=== PATIENT | female | born 1955 | race African-American/Black ===

== ENCOUNTER → 2016-08-17 | Outpatient (CLI) | payer OTHER ==
[~2016-08-17] MED LIST: ABILIFY PO; ABILIFY5 MG PO; ACIDOPHILUS1 EAC4 PO; ALDACTAZIDE PO; ALLOPURINOL300 MG PO; ALPRAZOLAM0.5 MG PO; ALPRAZOLAM1 MG PO; AMLODIPINE BESYL5 MG PO; ANTACID650 MG PO; ARAVA10 MG PO; ARTIFICIAL TEAR15 M9 OU; ASPIRIN81 MG PO; ASPIRINEC PO; ATARAX PO; BACITRACIN OP3.5 GM TOP; BACTRIM DS TAB1 EACH PO; BENZONATATE PO; BUMEX1 MG PO; BUTRANS1 EAC1 TD; CALCITRIOL0.5 MCG PO; CYMBALTA PO; CYMBALTA30 M1 PO; CYMBALTA30 MG PO; DELTASONE20 MG PO; DIFLUCAN100 MG PO; DITROPAN XL5 M1 PO; DITROPAN5 MG PO; DOCUSATE SODIU100 MG PO; DULOXETINE HCL60 MG PO; EFFER-K 20 MEQ20 MEQ PO; FERROUS SULFAT325 MG PO; FLEXERIL10 MG PO; HYDROCODON-ACE1 EAC7 PO; IRON325 ( 651 PO; KEPPRA250 MG PO; KEPPRA500 M2 PO; LISINOPRIL-HCTZ1 T14 PO; LISINOPRIL20 MG PO; LYRICA225 MG PO; LYRICA300 MG PO; MARINOL2.5 M1 PO; NEURONTIN100 MG PO; NEXIUM PO; PLAQUENIL200 MG PO; POTASSIUM CHLO10 MEQ PO; PREDNISONE PO; PROAIR HFA8.5 GM; PROTONIX PO; REGLAN10 MG PO; SOD BICARBONATE PO; TOPROL XL PO; VALTREX PO; VITAMIN D1000 UNIT PO; VITAMIN D400 UNI2 PO; XANAX1 MG PO
--- NOTE | ~2016-08-17 | MR148 ---
[facility] A Service of [facility] RADIOLOGY TEXT RESULTS PATIENT: VIC LANIER [facility] UNIT #: [id number] AGE: [address]: Yoshi Wilson MD SEX: F ORDER DR: [id number] [facility] [address] [place], [place] [address] [id number] O MR#: [id number] Acc #: [id number] NAME: VIC LANIER : 1955 SEX: F STUDY DATE/TIME: 08/17/2016 14:26 UNIT: [facility] ROOM: STUDY DESCRIPTION: MR Orbit Face and or Neck WWo Attending Physician: Yoshi Wilson M.D. Ordering Physician: Yoshi Wilson M.D. Primary Care Physician: Ciaran Ospina M.D. MRI CENTER REPORT This report is preliminary unless electronic signature is present. EXAM MRI of the orbits with and without contrast. DATE OF EXAM 08/17/2016 COMPARISON MRI of the brain with and without contrast dated 08/17/2016. HISTORY Left eye external ophthalmoplegia. Patient has not opened up the left eye in 2 months. Balance problems for 6-months. FINDINGS Multisequence, multiplanar imaging of the orbits were obtained with and without contrast. Globes of bilateral eyes, extraocular muscles, retrobulbar fat, lacrimal glands and optic nerves do not demonstrate any significant abnormality. Severe ophthalmic veins, optic chiasm and the prechiasmatic optic nerves are within normal limits. Status post bilateral cataract surgery. Visualized portions of the optic tract is also unremarkable. No abnormal enhancement or mass is seen. Adjacent paranasal sinuses demonstrate no significant abnormality. Left maxillary antrum is asymmetrically smaller when compared to the right. IMPRESSION 1. No orbital mass, abnormal extraocular muscles or optic nerves are seen. 2. Grossly, the globes are intact with evidence of cataract surgery and aphakia. 3. Optic chiasm and the prechiasmatic optic nerves do not demonstrate any significant abnormality. [facility] A Service of [facility] RADIOLOGY TEXT RESULTS PATIENT: VIC LANIER LOCATION: [facility] : 55 UNIT #: [id number] AGE: [address]: Yoshi Wilson MD SEX: F ORDER DR: Dictated by... Nely Rasmussen M.D. THIS IS AN ELECTRONICALLY VERIFIED REPORT Nely Rasmussen M.D. at 08/18/2016 5:25 PM CPR/jt TD: 08/17/2016 17:37 JOB #: [id number] MRI CENTER REPORT Page 1 of 1 COPY
--- NOTE | ~2016-08-17 | MR17 ---
[facility] A Service of [facility] RADIOLOGY TEXT RESULTS PATIENT: VIC LANIER LOCATION: [facility] : 55 UNIT #: [id number] AGE: [address]: Yoshi Wilson MD SEX: F ORDER DR: [id number] [facility] [address] [place], [place] [address] [id number] O MR#: [id number] Acc #: [id number] NAME: VIC LANIER : 1955 SEX: F STUDY DATE/TIME: 08/17/2016 13:27 UNIT: [facility] ROOM: STUDY DESCRIPTION: MR Brain WWo Contrast Attending Physician: Yoshi Wilson M.D. Ordering Physician: Yoshi Wilson M.D. Primary Care Physician: Ciaran Ospina M.D. MRI CENTER REPORT This report is preliminary unless electronic signature is present. EXAM MRI of the brain with and without contrast dated 08/17/2016. COMPARISON MRI brain without contrast dated 05/05/2013, 09/24/2015, and MRI orbits dated 08/17/2016. HISTORY External ophthalmoplegia of the left eye. Patient has not opened the left eye now for 2 months. Eyelid twitches on and off. Balance problems for 6 months. FINDINGS Multisequence, multiplanar imaging of the brain was obtained with and without contrast. GFR measured 58. 16 mL of MultiHance was administered intravenously. Scattered increased T2-signal lesions are noted in the white matter, particularly the left frontal centrum semiovale and left cerebellar hemisphere which are stable when compared to the previous study. There is a small 3 mm increased T2-signal lesions noted in the posterior mid-right cerebellar hemisphere which was not seen on the previous study from 3 years ago. No acute stroke, enhancing mass, hydrocephalus, or midline shift. Bilateral occipital lobes are within normal limits. Status post bilateral cataract surgery. Paranasal sinuses and mastoid air cells demonstrate mild bilateral mastoid mucosal thickening. Thick slices through the sella with the pituitary gland, pineal region, and upper cervical spine are within normal limits. IMPRESSION 1. There are a few increased T2-signal lesions in the brain which are nonspecific. Based on age and statistics it could be related to mild chronic microvascular ischemic change and old lacunar infarcts, particularly in the left cerebellar hemisphere. A small similar lesion is noted in the right cerebellar hemisphere measuring 3 mm. [facility] A Service of [facility] RADIOLOGY TEXT RESULTS PATIENT: VIC LANIER LOCATION: [facility] : 55 UNIT #: [id number] AGE: [address]: Yoshi Wilson MD SEX: F ORDER DR: It is relatively new when compared to the prior study from 3 years ago. 2. The occipital lobes, region of the optic chiasm, and optic tract do not demonstrate any significant abnormality. 3. Visualized orbits do not demonstrate any significant abnormality on these thicker slices. Refer to MRI orbits. Dictated by... Nely Rasmussen M.D. THIS IS AN ELECTRONICALLY VERIFIED REPORT Nely Rasmussen M.D. at 08/18/2016 5:25 PM CPR/tmw TD: 08/17/2016 17:17 JOB #: [id number] MRI CENTER REPORT Page 1 of 1 COPY
[2016-08-17 13:21] LABS: POC - CREATININE 1.22 mg/dL (0.44-1.03)
== END | disposition home or self-care (01) ==
LOC: CMRI 08-15 08:00
PROVIDERS: Ophthalmology
DX: H49.882 Other paralytic strabismus, left eye (principal); G93.89 Other specified disorders of brain
CPT/HCPCS: 70543; 70553; 82565; A9577

== ENCOUNTER → 2016-09-10 | Outpatient (CLI) | payer OTHER ==
--- NOTE | ~2016-09-10 | CR63 ---
[facility] A Service of [facility] RADIOLOGY TEXT RESULTS PATIENT: VIC LANIER LOCATION: [facility] : 55 UNIT #: [id number] AGE: [address]: Ciaran Ospina MD SEX: F ORDER DR: [id number] [facility] [address] [place], [place] [address] [id number] O MR#: [id number] Acc #: [id number] NAME: VIC LANIER : 1955 SEX: F STUDY DATE/TIME: 09/10/2016 10:33 UNIT: [facility] ROOM: STUDY DESCRIPTION: CR Chest 2 View Attending Physician: Ciaran Ospina M.D. Referring Physician: Ciaran Ospina M.D. Ordering Physician: Ciaran Ospina M.D. Primary Care Physician: Ciaran Ospina M.D. MEDICAL IMAGING REPORT This report is preliminary unless electronic signature is present EXAM PA and lateral chest INDICATIONS Cough for 4-6 weeks. COMPARISON 02/07/2016. FINDINGS Bibasilar atelectasis. No airspace infiltrates. Heart size normal. Degenerative changes thoracic spine. IMPRESSION Bibasilar atelectasis. No acute finding. Dictated by... Sai Gomez M.D. THIS IS AN ELECTRONICALLY VERIFIED REPORT Sai Gomez M.D. at 09/11/2016 4:35 PM ARS/pcl TD: 09/10/2016 13:18 JOB #: [id number] MEDICAL IMAGING REPORT Page 1 of 1 COPY
== END | disposition home or self-care (01) ==
LOC: CRAD 10:23
DX: R05 Cough (principal); J98.11 Atelectasis
CPT/HCPCS: 71020

== ENCOUNTER → 2016-09-27 | Outpatient (CLI) | payer OTHER ==
--- NOTE | ~2016-09-27 | XA51 ---
[facility] A Service of [facility] RADIOLOGY TEXT RESULTS PATIENT: VIC LANIER [facility] UNIT #: [id number] AGE: [address]: Daniel Theodore MD SEX: F ORDER DR: [id number] [place] [id number] [place], [place] [address] [id number] O MR#: [id number] Acc #: [id number] NAME: VIC LANIER : 1955 SEX: F STUDY DATE/TIME: 09/27/2016 8:18 UNIT: [facility] ROOM: STUDY DESCRIPTION: KEN BX Bone Marrow Attending Physician: Daniel Theodore M.D. Ordering Physician: Daniel Theodore M.D. Primary Care Physician: Ciaran Ospina M.D. MEDICAL IMAGING REPORT This report is preliminary unless electronic signature is present EXAM Fluoroscopically -guided bone marrow biopsy and aspiration. INDICATIONS Lymphoma. Staging. The fluoroscopy time 0.5 minutes. Reference air kerma is 43 mGy. Medications, IV Versed and Fentanyl utilized for conscious sedation. Conscious sedation time monitored by appropriately credentialed radiology nursing staff. Sedation time was approximately 40 minutes. The risks, benefits, and alternatives of the procedure were discussed with the patient and informed consent was obtained. In the procedure room, a time out was performed confirming correct patient and procedure. All elements of maximum sterile-barrier technique utilized according to guidelines appropriate for the procedure. TECHNIQUE/FINDINGS The patient was placed in the prone position on the fluoroscopy table. Skin overlying the posterior right iliac crest was prepped and draped in the usual sterile fashion and 1% lidocaine utilized to anesthetize the skin and underlying subcutaneous tissues. Next under fluoroscopic guidance, an 11-gauge Oncontrol access needle was advanced into the marrow space. A bone marrow aspirate followed by core biopsy was obtained and samples were sent to pathology. Needle was removed and a sterile dressing was applied. There were no immediate complications. IMPRESSION Technically successful fluoroscopically-guided bone marrow biopsy and aspiration. Dictated by... Sai Gomez M.D. [facility] A Service of [facility] RADIOLOGY TEXT RESULTS PATIENT: VIC LANIER LOCATION: [facility] : 55 UNIT #: [id number] AGE: [address]: Daniel Theodore MD SEX: F ORDER DR: THIS IS AN ELECTRONICALLY VERIFIED REPORT Sai Gomez M.D. at 09/28/2016 4:52 PM ARS/pcl TD: 09/27/2016 19:25 JOB #: [id number] MEDICAL IMAGING REPORT Page 1 of 1 COPY
[2016-09-27 07:26] LABS: HEMATOCRIT 26.9 % (35.0-45.0); HEMOGLOBIN 8.2 gm/dL (12.0-16.0); MEAN CELL VOLUME 86.2 FL (83-96); MEAN CORPUSCULAR HEMOGLOBIN 26.5 PG (28-34); MEAN CORPUSCULAR HGB CONC 30.7 g/dL (30-36); MEAN PLATELET VOLUME 7.8 FL (6.5-11.5); RED BLOOD COUNT 3.12 X10e (3.90-5.30); RED CELL DISTRIBUTION WIDTH 15.4 % (11.0-15.5); WHITE BLOOD COUNT 7.4 X10e3 (4.0-10.5)
[2016-09-27 07:41] LABS: PARTIAL THROMBOPLASTIN TIME 27.7 SECONDS (23.5-31.3); PROTHROMBIN TIME (PATIENT) 10.7 SECONDS (9.6-11.5)
== END | disposition home or self-care (01) ==
LOC: CIVR 06:42
PROVIDERS: Internal Medicine Hematology & Oncology
DX: C83.39 Diffuse large B-cell lymphoma, extranodal and solid organ sites (principal); Z88.0 Allergy status to penicillin; Z88.5 Allergy status to narcotic agent; Z88.8 Allergy status to other drugs, medicaments and biological substances; Z91.048 Other nonmedicinal substance allergy status
CPT/HCPCS: 38221; G0364; 36415; 77002; 85027; 85610; 85730; 88305; 88311; 88313; 99144; 99152; 99153; J1642; J2250; J3010

== ENCOUNTER → 2016-09-28 | Outpatient (CLI) | payer OTHER ==
--- NOTE | ~2016-09-28 | CT2 ---
[facility] A Service of [facility] RADIOLOGY TEXT RESULTS PATIENT: VIC LANIER LOCATION: [facility] : 55 UNIT #: [id number] AGE: [address]: Daniel Theodore MD SEX: F ORDER DR: [id number] [facility] [address] [place], [place] [address] [id number] O MR#: [id number] Acc #: [id number] NAME: VIC LANIER : 1955 SEX: F STUDY DATE/TIME: 09/28/2016 10:39 UNIT: [facility] ROOM: STUDY DESCRIPTION: CT Abd and Pelv W Cont Attending Physician: Dnaiel Theodore M.D. Ordering Physician: Daniel Theodore M.D. Primary Care Physician: Ciaran Ospina M.D. MEDICAL IMAGING REPORT This report is preliminary unless electronic signature is present EXAM CT of the abdomen and pelvis with contrast 09/28/2016 INDICATIONS Lymphoma. This patient had a PET CT on September 19, 2016 which showed some hypermetabolic lymph nodes within the abdomen as well as some thickened loops of bowel in keeping with history of lymphoma. This exam is requested for surveillance for metastatic disease. TECHNIQUE Axial CT imaging was obtained from the dome of the diaphragm through the symphysis pubis following the administration of intravenous and oral contrast material. This CT exam was performed with one or more of the following radiation dose reduction techniques: automatic exposure control, adjustment of mA and/or kV according to patient size, and iterative reconstruction. FINDINGS At the cardiophrenic angle this patient has a soft tissue nodule measuring up to 3.5 x 1.3 cm. This was previously found to be hypermetabolic and characteristic of malignancy. Liver is unremarkable. Spleen is within normal limits. The stomach also appears normal on these images. The adrenal glands are also within normal limits. Patient does have some areas of cortical thinning within both kidneys which may reflect sequela of prior insults. Pancreas is atrophic. Gallbladder is surgically absent. This patients small bowel is diffusely abnormal. 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 Again this process appears to spare the stomach, and probably also the colon as well. There is suspected mesenteric infiltration as well with abnormal splaying of the mesenteric vessels noted. Patient does [facility] A Service of [facility] RADIOLOGY TEXT RESULTS PATIENT: VIC LANIER LOCATION: [facility] : 55 UNIT #: [id number] AGE: [address]: Daniel Theodore MD SEX: F ORDER DR: have a small amount of loculated fluid within the pelvis and additional small amounts of intraabdominal free fluid noted as well. Urinary bladder is within normal limits. Uterus is surgically absent. Review of bony windows does not demonstrate any aggressive osseous abnormalities. Patient does have changes of prior lumbar spinal fusion at L4-L5. There is a fat and fluid containing umbilical hernia. IMPRESSION This patient's small bowel is diffusely abnormal with multiple thick-walled segments some of which appear dilated. 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 There is also suspected mesenteric infiltration as well. There is a soft tissue nodule seen within the cardiophrenic region which was hypermetabolic on PET and was favored to represent additional lymphomatous involvement and there is also a prominent left external iliac chain node measuring up to 1.5 x 0.9 cm that could reflect additional involvement. Also noted but not mentioned in the report this patient has abnormal thickening of the left pelvic side wall with loss of normal fat planes again felt to represent additional malignant involvement. Please see the body of the report for any other additional incidental findings. Dictated by... Jessika Bauer M.D. THIS IS AN ELECTRONICALLY VERIFIED REPORT Jessika Bauer M.D. at 09/29/2016 10:05 AM ANGIE/kori TD: 09/28/2016 16:29 JOB #: [id number] MEDICAL IMAGING REPORT Page 1 of 1 COPY
--- NOTE | ~2016-09-28 | XA91 ---
[facility] A Service of [facility] RADIOLOGY TEXT RESULTS PATIENT: VIC LANIER LOCATION: [facility] : 55 UNIT #: [id number] AGE: [address]: Daniel Theodore MD SEX: F ORDER DR: [id number] [facility] [address] [place], [place] [address] [id number] O MR#: [id number] Acc #: [id number] NAME: VIC LANIER : 1955 SEX: F STUDY DATE/TIME: 09/28/2016 8:06 UNIT: [facility] ROOM: STUDY DESCRIPTION: XA CVC Tunneled W Port Attending Physician: Daniel Theodore M.D. Ordering Physician: Daniel Theodore M.D. Primary Care Physician: Ciaran Ospina M.D. MEDICAL IMAGING REPORT This report is preliminary unless electronic signature is present EXAM MediPort placement INDICATION Small bowel lymphoma. Patient requires IV access for chemotherapy. FINDINGS The procedure was explained to the patient including risks, benefits, potential complications and potential for alternative forms of treatment. Informed consent was obtained and prior to initiating the procedure a formal time-out was procedures was performed. Using all elements of maximal sterile barrier technique including hand hygiene, caps, sterile gowns, gloves and masks the right neck and chest were prepped with 2% Chlorhexidine for cutaneous antisepsis and covered with a large sterile sheet. Real-time sterile ultrasound guidance was used to localize the right internal jugular vein which was found to be patent and compressible. A hard copy ultrasound image was obtained. After localization with 1% Xylocaine the vein was punctured using real-time sterile ultrasound guidance, an 0.018 guidewire was advanced into the superior vena cava under fluoroscopic guidance. A micropuncture sheath was placed. J-wire was advanced into the inferior vena cava. At this time I turned my attention to creation of a port pocket. The skin and subcutaneous tissues in the right anterolateral chest wall were anesthetized with buffered lidocaine and lidocaine with epinephrine. A small skin incision was made. Port pocket was created using a combination of blunt and sharp dissection. The port was seated within the pocket and secured using two 3-0 Vicryl sutures. Catheter was then tunneled up through the right anterolateral chest wall to the insertion site at the neck. The catheter was measured and trimmed. A peel-away sheath was advanced over the wire, catheter was advanced through the peel-away sheath and positioned at the cavoatrial junction. Following placement of the catheter it flushed and aspirated easily. Its position was confirmed with [facility] A Service of [facility] RADIOLOGY TEXT RESULTS PATIENT: VIC LANIER [facility] : 55 UNIT #: [id number] AGE: [address]: Daniel Theodore MD SEX: F ORDER DR: a radiographic image. Deep layer of the port pocket was closed using interrupted 3-0 Vicryl sutures and a running 4-0 Monocryl suture was used to close the skin. A single 4-0 Monocryl suture used to close the insertion site at the neck. Dermabond was applied to both wounds to act as a dressing. Total fluoroscopy time was 0.1 minutes. AK was 1 mGy. Patient did receive conscious sedation consisting of 4 mg of Versed and 100 mcg of Fentanyl. Continuous monitoring for a total of 65 minutes was provided by the IVR nurse. IMPRESSION Successful placement of a right internal jugular vein MediPort which terminates at the cavoatrial junction. This catheter is ready for immediate use. Ultrasound and fluoroscopy were used during placement of the catheter and permanent images were saved. Please note the catheter was left accessed, as the patient is to undergo a CAT scan today. Dictated by... Jessika Bauer M.D. THIS IS AN ELECTRONICALLY VERIFIED REPORT Jessika Bauer M.D. at 09/29/2016 10:03 AM ANGIE/chinyere TD: 09/29/2016 08:29 JOB #: [id number] MEDICAL IMAGING REPORT Page 1 of 1 COPY
[2016-09-28 11:00] LABS: POC - CREATININE 0.98 mg/dL (0.44-1.03); POC - GFR >60.0 mL/min (>60)
== END | disposition home or self-care (01) ==
LOC: CIVR 06:43
PROVIDERS: Internal Medicine Hematology & Oncology
PROC: 02HV33Z Insertion of Infusion Device into Superior Vena Cava, Percutaneous Approach (ICD-10-PCS; principal; 2016-09-28)
DX: Z45.2 Encounter for adjustment and management of vascular access device (principal); C83.39 Diffuse large B-cell lymphoma, extranodal and solid organ sites; M06.9 Rheumatoid arthritis, unspecified; K52.9 Noninfective gastroenteritis and colitis, unspecified; I10 Essential (primary) hypertension; M32.9 Systemic lupus erythematosus, unspecified
CPT/HCPCS: 74177; 76937; 77001; 82565; C1788; C1894; J1642; J2250; J3010; Q9967

== ENCOUNTER 2016-10-03 06:11 | Inpatient (IN) | payer OTHER ==
--- NOTE | ~2016-10-03 | DS ---
Unit #: [id number] #: [id number] Patient: RACHEL LANIER [id number] [address] [address] [id number] I MR#: [id number] NAME: RACHEL LANIER ROOM: 332 Age: 61 Sex: F Admission Date: 10/03/2016 : 1955 Discharge Date: 10/05/2016 Attending Physician: Daniel Theodore M.D. Primary Care Physician: Ciaran Ospina M.D. DISCHARGE SUMMARY PRINCIPAL DIAGNOSES 1. 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 2. Systemic lupus erythematosus. 3. Rheumatoid arthritis. 4. Chronic kidney disease stage 3. 5. Dilated cardiomyopathy. 6. Seizure disorder. MEDICATIONS Please see medication reconciliation sheet. It is to be noted that she will continue prednisone 100 mg daily for two more days, i.e. Sunday and Sunday. HOSPITAL COURSE AND COMPLICATIONS Please see admission history and physical for details of admission. Briefly, Ms. Rachel Solomon is a 61-year-old with a history of profuse diarrhea and 40 pound weight loss. On workup, was found to have diffuse large B cell lymphoma of ileocecal area. Patient had a history of Bcl-6 expression but not (1) or Bcl-2. She was staged with a 2EB after bone marrow aspiration and biopsy and PET CT scan. Was admitted for cycle one of chemotherapy with Rituxan, cyclophosphamide, vincristine, etoposide. Anthracyclines are being avoided in view of her cardiomyopathy and ejection fraction of 45%. In view of her frailty as well as significant weight loss, plan to admit as an inpatient because of risk of GI perforation. She tolerated chemotherapy well without any significant abnormal side effects and was discharged home. Overall, she has been feeling better with resolution of diarrhea. Dictated by... Daniel Theodore M.D. TERESE/sosa TD: 10/11/2016 06:57 JOB #: [id number] Unit #: [id number] #: [id number] Patient: RACHEL LANIER DISCHARGE SUMMARY Page 1 of 1 X Daniel Theodore MD DISCHARGE SUMMARY
[~2016-10-03 06:11] MED LIST changes: -ARTIFICIAL TEAR15 M9 OU; -ASPIRIN81 MG PO; -ASPIRINEC PO; -BACITRACIN OP3.5 GM TOP; -BENZONATATE PO; -DOCUSATE SODIU100 MG PO; -MARINOL2.5 M1 PO; -PREDNISONE PO; -PROAIR HFA8.5 GM; -SOD BICARBONATE PO
[2016-10-03 14:28] LABS: HEMATOCRIT 26.4 % (35.0-45.0); HEMOGLOBIN 8.2 gm/dL (12.0-16.0); MEAN CELL VOLUME 85.9 FL (83-96); MEAN CORPUSCULAR HEMOGLOBIN 26.9 PG (28-34); MEAN CORPUSCULAR HGB CONC 31.3 g/dL (30-36); MEAN PLATELET VOLUME 7.9 FL (6.5-11.5); RED BLOOD COUNT 3.07 X10e (3.90-5.30); WHITE BLOOD COUNT 10.1 X10e3 (4.0-10.5)
[2016-10-03] MEDS ORDERED: DITROPAN5 MG PO (14:46)
[2016-10-03 14:51] LABS: ALBUMIN SERUM 2.5 g/dL (3.5-5.0); BILIRUBIN,TOTAL 0.2 mg/dL (0.2-2.0); BUN/CREATININE RATIO 23.57; CALCIUM SERUM 8.4 mg/dL (8.4-10.2); CREATININE SERUM 1.4 mg/dL (0.6-1.4); GLOM FILT RATE Estimated 46.9 mL/min (>60); POTASSIUM 4.4 mmol/L (3.5-5.1); PROTEIN TOTAL SERUM 6.6 g/dL (6.0-8.3); URIC ACID 2.9 mg/dL (2.6-7.2)
[2016-10-03] MEDS ORDERED: CALCITRIOL0.5 MCG PO (15:01)
[2016-10-03] MEDS ORDERED: ASPIRINEC PO (15:02)
[2016-10-03] MEDS ORDERED: SOD BICARBONATE PO (15:02)
[2016-10-03] MEDS ORDERED: PROAIR HFA8.5 GM (15:04)
[2016-10-03] MEDS ORDERED: BACITRACIN OP3.5 GM TOP (15:06)
[2016-10-03] MEDS ORDERED: ARTIFICIAL TEAR15 M9 OU (15:07)
[2016-10-03] MEDS ORDERED: CYMBALTA30 M1 PO (15:34)
[2016-10-04 05:31] LABS: CREATININE,RANDOM URINE 59 mg/dL; TOTAL PROTEIN,RANDOM URINE <10 mg/dl (<10)
[2016-10-04 06:26] LABS: URINE APPEARANCE CLEAR; URINE BILIRUBIN NEG (NEG); URINE BLOOD NEG (NEG); URINE COLOR YELLOW; URINE GLUCOSE NEG (NEG); URINE KETONE NEG (NEG); URINE LEUKOCYTE ESTERASE NEG (NEG); URINE NITRATE NEG (NEG); URINE PH 6.5 (5-8); URINE PROTEIN NEG (NEG); URINE SPECIFIC GRAVITY 1.019 (1.003-1.035); URINE UROBILINOGEN 0.2 MG/DL (NEG)
[2016-10-04 09:22] LABS: HEMATOCRIT 26.8 % (35.0-45.0); HEMOGLOBIN 8.3 gm/dL (12.0-16.0); MEAN CELL VOLUME 86.3 FL (83-96); MEAN CORPUSCULAR HEMOGLOBIN 26.7 PG (28-34); MEAN CORPUSCULAR HGB CONC 30.9 g/dL (30-36); MEAN PLATELET VOLUME 8.1 FL (6.5-11.5); RED BLOOD COUNT 3.11 X10e (3.90-5.30); RED CELL DISTRIBUTION WIDTH 16.3 % (11.0-15.5)
[2016-10-04 09:23] LABS: WHITE BLOOD COUNT 15.4 X10e3 (4.0-10.5)
[2016-10-04 10:14] LABS: ALBUMIN SERUM 2.5 g/dL (3.5-5.0); BILIRUBIN,TOTAL 0.5 mg/dL (0.2-2.0); BUN/CREATININE RATIO 25.45; CALCIUM SERUM 8.2 mg/dL (8.4-10.2); CREATININE SERUM 1.1 mg/dL (0.6-1.4); GLOM FILT RATE Estimated 62.8 mL/min (>60); MAGNESIUM 1.9 mg/dL (1.6-3.0); PHOSPHOROUS 3.7 mg/dL (2.5-4.6); POTASSIUM 4.1 mmol/L (3.5-5.1); PROTEIN TOTAL SERUM 6.4 g/dL (6.0-8.3)
[2016-10-05 01:06] LABS: COMPLEMENT C3 153 mg/dL (90-180); COMPLEMENT C4 41 mg/dL (16-47)
[2016-10-05] MEDS ORDERED: DELTASONE20 MG PO (03:40)
== END 2016-10-05 10:18 | disposition home or self-care (01) | DRG 842 ==
LOC: UNDOADMIN 06:11 → C3A PCU 06:11
PROVIDERS: Internal Medicine Hematology & Oncology
DX: C83.39 Diffuse large B-cell lymphoma, extranodal and solid organ sites (principal); N18.3 Chronic kidney disease, stage 3 (moderate); I12.9 Hypertensive chronic kidney disease with stage 1 through stage 4 chronic kidney disease, or unspecified chronic kidney disease
CPT/HCPCS: 80053; 81003; 82570; 83735; 84100; 84156; 84550; 85027; 86160; 86225; 87086; 87088; 87186; 94640; 94760; J1100; J1200; J1453; J2270; J2469; J9070; J9181; J9310; J9370

== ENCOUNTER → 2016-10-05 | Outpatient (CLI) | payer OTHER ==
[~2016-10-05] MED LIST changes: +ARTIFICIAL TEAR15 M9 OU; +ASPIRIN81 MG PO; +ASPIRINEC PO; +BACITRACIN OP3.5 GM TOP; +BENZONATATE PO; +DOCUSATE SODIU100 MG PO; +MARINOL2.5 M1 PO; +PREDNISONE PO; +PROAIR HFA8.5 GM; +SOD BICARBONATE PO
== END | disposition home or self-care (01) ==
LOC: CSSDAY 10:15
DX: C83.30 Diffuse large B-cell lymphoma, unspecified site (principal); Z79.899 Other long term (current) drug therapy
CPT/HCPCS: 96377; J2505

== ENCOUNTER 2016-10-06 01:07 | Inpatient (IN) | payer OTHER ==
--- NOTE | ~2016-10-06 | CR63 ---
[facility] A Service of [facility] RADIOLOGY TEXT RESULTS PATIENT: VIC LANIER LOCATION: C2A 217-01 : 55 UNIT #: [id number] AGE: [address]: Naye Dukes MD SEX: F ORDER DR: [id number] [facility] [address] [place], [place] [address] [id number] I MR#: [id number] Acc #: [id number] NAME: VIC LANIER : 1955 SEX: F STUDY DATE/TIME: 10/07/2016 7:41 UNIT: A ROOM: [facility] STUDY DESCRIPTION: CR Chest 2 View Attending Physician: Naye Dukes M.D. Ordering Physician: Rickey Aviles M.D. Primary Care Physician: Ciaran Ospina M.D. MEDICAL IMAGING REPORT This report is preliminary unless electronic signature is present EXAM Two-view chest, 10/07/2016. HISTORY 61-year-old female with shortness of air since 10/06/2016. COMPARISON Chest, 09/10/2016. FINDINGS 2 views of the chest demonstrate mild elevation of the left hemidiaphragm and mild left basilar atelectasis. Right lung clear. No pneumothorax. Right-sided Port-A-Cath. Heart size is upper limits. Mediastinum and pulmonary vasculature unremarkable. IMPRESSION Mild elevation of the left hemidiaphragm with minimal left basilar atelectasis. No other acute chest findings. Dictated by... Gustavo Ortega M.D. THIS IS AN ELECTRONICALLY VERIFIED REPORT Gustavo Ortega M.D. at 10/08/2016 6:20 AM AMADO/petar TD: 10/07/2016 09:38 JOB #: [id number] MEDICAL IMAGING REPORT Page 1 of 1 COPY
--- NOTE | ~2016-10-06 | CO ---
Unit #: [id number] #: [id number] Patient: VIC LANIER [id number] [address] [address] [id number] I MR#: [id number] NAME: VIC LANIER ROOM: 07896 Age: 61 Sex: F Admission Date: 10/06/2016 : 1955 Attending Physician: Naye Dukes M.D. Primary Care Physician: Ciaran Ospina M.D. Consultation Date: 10/06/2016 CONSULTATION REPORT BRIEF HISTORY The patient is a 61-year-old lady who presents with acute onset of bright red blood per rectum. She says she has just felt some fullness and has passed blood. No real hard movement but her blood was with the bowel movement. She states that she has had a colonoscopy within the last two months and was diagnosed with lymphoma and is currently undergoing chemotherapy. I was unable to find records in the computer. PAST HISTORY 1. Cardiac dysfunction. 2. Hypertension. 3. Seizures. 4. Psych history. PAST SURGICAL HISTORY She has had a: 1. Hysterectomy. 2. Cholecystectomy. 3. Lumpectomy. 4. Colonoscopy. 5. Cardiac cath. MEDICATIONS Home medications are extensive. Please see list. SOCIAL HISTORY No smoking, no alcohol. FAMILY HISTORY Negative for GI malignancy. REVIEW OF SYSTEMS No cardiopulmonary complaints at this time. All ten systems reviewed and negative. PHYSICAL EXAMINATION GENERAL: She is awake and alert, in no distress. VITAL SIGNS: Blood pressure 137/79, temperature 97.9. HEENT: Unremarkable. NECK: Supple, no JVD. Trachea midline. LUNGS: Clear to auscultation bilaterally. Breath sounds symmetric. CARDIOVASCULAR: Regular rate and rhythm. ABDOMEN: Soft, nontender, nondistended. I palpate no masses. No hepatosplenomegaly. Unit #: [id number] #: [id number] Patient: VIC LANIER EXTREMITIES: No clubbing, cyanosis or edema. She is Hemoccult positive. DIAGNOSTIC STUDIES LABORATORY: Labs show a hemoglobin of 7.9, white count of 4.7, INR is normal. ASSESSMENT AND PLAN Rectal bleed. PLAN Recommend conservative management with resuscitation and monitoring. Will review records of colonoscopy. Doubt requires repeat colonoscopy at this time. Dictated by... Helene Solis TD: 10/06/2016 10:43 JOB #: [id number] CONSULTATION REPORT Page 1 of 1 X Jamie Hair MD X CONSULTATION REPORT
--- NOTE | ~2016-10-06 | CT2 ---
[facility] A Service of [facility] RADIOLOGY TEXT RESULTS PATIENT: VIC LANIER LOCATION: [facility] 217-01 : 55 UNIT #: [id number] AGE: [address]: Naye Dukes MD SEX: F ORDER DR: [id number] [facility] [address] [place], [place] [address] [id number] MR#: [id number] Acc #: [id number] NAME: VIC LANIER : 1955 SEX: F STUDY DATE/TIME: 10/06/2016 03:39 UNIT: CEDOF ROOM: 27477 STUDY DESCRIPTION: CT Abd and Pelv W Cont Attending Physician: Naye Dukes M.D. Ordering Physician: Bert Guo M.D. Primary Care Physician: Ciaran Ospina M.D. MEDICAL IMAGING REPORT This report is preliminary unless electronic signature is present EXAM CT abdomen and pelvis 10/06/2016 03:39 INDICATION Rectal bleeding that started yesterday. History of chronic kidney disease. History of lymphoma. TECHNIQUE Axial images were obtained through the abdomen and pelvis following IV contrast administration. Multiplanar reformats were obtained. Comparison is made with 09/28/2016. This CT examination was performed with one or more of the following radiation dose reduction techniques: automatic exposure control, adjustment of mA and/or kV according to patient size, and iterative reconstruction. FINDINGS ABDOMEN: There is some minimal atelectasis or scarring in the left lung base. Enlarged right side epicardial lymph node is again seen. Today it measures about 1.3 x 3.4 cm where it was previously 1.3 x 3.5 cm. This is unchanged. Gallbladder surgically absent. No biliary obstruction. Solid organs are normal. There is a trace amount of free fluid. There is some soft tissue change at the root of the mesentery encasing the SMV and SMA compatible with the given history of lymphoma. GI tract evaluation is limited without oral contrast. No definite bowel obstruction is seen. There are some mildly distended small bowel loops noted. Diffuse involvement of the small bowel mesentery in the central abdomen is again seen with tumor. It is grossly stable. The amount of ascites is actually improved. PELVIS: Abnormally thickened small bowel loops in the pelvis are improved allowing for the lack of oral contrast suggesting improving lymphoma. There is some dependent free fluid in the pelvis. Soft tissue changes in the left pelvic sidewall are slightly improved. Urinary bladder is STS. [facility] A Service of [facility] RADIOLOGY TEXT RESULTS PATIENT: VIC LANIER LOCATION: [facility] 217- : 55 UNIT #: [id number] AGE: [address]: Naye Dukes MD SEX: F ORDER DR: normal. Uterus is surgically absent. Left external iliac lymph node is again seen. It appears slightly smaller. No suspicious osseous lesions are seen in the abdomen or pelvis. Patient is status post L4-5 fusion. IMPRESSION 1. 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 This is grossly stable. 2. Prior study showed abnormally thickened distal small bowel loops compatible with lymphomatous involvement. These thickened loops are closer to normal on the current study without definitive wall thickening. Study is limited by the lack of oral contrast currently. 3. No definite bowel obstruction. 4. Small volume of ascites in the abdomen and pelvis, slightly improved. 5. Stable appearance of a right epicardial lymph node. 6. Cholecystectomy, hysterectomy, and lumbar fusion. Dictated by... Sandeep Gill Jr., M.D. THIS IS AN ELECTRONICALLY VERIFIED REPORT Sandeep Gill Jr., M.D. at 10/09/2016 8:36 AM JUAN/ulises TD: 10/06/2016 06:11 JOB #: [id number] MEDICAL IMAGING REPORT Page 1 of 1 COPY
--- NOTE | ~2016-10-06 | DS ---
Unit #: [id number] #: [id number] Patient: VIC LANIER [id number] [address] [address] [id number] I MR#: [id number] NAME: VIC LANIER ROOM: 217 Age: 61 Sex: F Admission Date: 10/06/2016 : 1955 Discharge Date: 10/12/2016 Attending Physician: Naye Dukes M.D. Primary Care Physician: Ciaran Ospina M.D. DISCHARGE SUMMARY DISCHARGE DIAGNOSES 1. Rectal bleed, status post transfusions, status post evaluation per Gastroenterology, status post colonoscopy. 2. Chronic kidney disease, stable. Discharge BUN 13, creatinine 1.1. Status post evaluation per Nephrology. Stable for discharge. 3. History of lymphoma, status post evaluation per Hematology. Stable for discharge with outpatient followup. 4. History of rheumatoid arthritis. Continue home medications. 5. History of peripheral vascular disease, stable. 6. Low-grade fever, status post negative CT of the chest which ruled out pneumonia, status post negative procalcitonin level at 0.06 from 10/07/2016. Status post unremarkable urine culture with only 10,000 to 20,000 colonies of enterococcus. Patient does have a temperature of 99.1 and white count of 12.4. The patient is status post evaluation per Pulmonary and is stable for discharge. 7. Cough. Per Pulmonary, stable for discharge. Continue Tessalon Perles. Status post unremarkable CT of the chest. 8. Anemia of chronic disease. Discharge date hemoglobin 10.2 and hematocrit 32.2. DISCHARGE MEDICATIONS 1. Home dose of albuterol inhaler q.4 h. p.r.n. 2. Sodium bicarbonate 650 mg p.o. t.i.d. Home dose. 3. Tylenol p.r.n. 4. Bacitracin ointment topically t.i.d. 5. Gabapentin 100 mg t.i.d. 6. Keppra 500 mg h.s. 7. Keppra 250 mg q.a.m. 8. Lyrica 300 mg b.i.d. 9. Cymbalta 60 mg daily. 10. Cymbalta 30 mg h.s. 11. Lactobacillus tablets daily. 12. Diflucan 100 mg daily. 13. Hydroxychloroquine 200 mg b.i.d. 14. Abilify 7 mg h.s. 15. Tessalon Perles 200 mg p.o. t.i.d. p.r.n. for cough. 16. Valtrex 1 gram p.o. daily. 17. Xanax 0.5 mg p.o. b.i.d. 18. Toprol XL 25 mg q.a.m. 19. Colace 100 mg b.i.d. 20. Artificial Tears t.i.d. 21. Bumex 1 mg p.o. q.a.m. 22. Oxybutynin 5 mg p.o. b.i.d. 23. Ferrous sulfate one tablet t.i.d. Unit #: [id number] #: [id number] Patient: VIC LANIER 24. Allopurinol 300 mg q.a.m. 25. Aspirin 81 mg daily. 26. Protonix 40 mg daily. 27. Flexeril 10 mg h.s. 28. Bactrim one tablet p.o. Sunday, Sunday, and Sunday. 29. Rocaltrol 0.5 mcg p.o. daily. 30. Cholecalciferol 1000 units p.o. daily. FOLLOWUP 1. The patient is to follow up with her primary care physician next week. 2. Outpatient follow up with Hematology, Gastroenterology, and Pulmonary. Dictated by... Rickey Aviles M.D. OC/eunice TD: 10/12/2016 20:17 JOB #: [id number] DISCHARGE SUMMARY Page 1 of 1 X Rickey Aviles MD X DISCHARGE SUMMARY
--- NOTE | ~2016-10-06 | A ---
[facility] Nutrition Therapy DATE: 10/07/16 Patient: VIC STEWART Physician: RYNE Address: [address] Room/Bed: [address] [place] [address], Zip: [place] [address] Admit Date: 10/06/16 Date of : 55 Height: 5 9 Weight: 160 72.57 NUTRITIONAL ASSESSMENT: REASON: 5 POINTS UNPLANNED WEIGHT LOSS, C/S "WT LOSS" PATIENT ADMITTED FOR RECTAL/GI BLEEDING PMH: SMALL BOWEL LYMPHOMA, LUPUS, RA, HTN, CKD STAGE 3, HX CVA, CHF Anthropometrics: HT: 69", WT: 72.7KG (160#), BMI: 23.6 Labs: 10/07/16- GLU: 121, ALB: 2.4 Meds: ABILIFY, CYMBALTA, SODIUM BICARBONATE, NEURONTIN, BUMETANIDE, XANAX, NACL I/O & Bowel function: 560/700 LBM 10/06/16 Skin Integrity: INTACT Estimated Nutrition Needs: INCREASED 2' LYMPHOMA AND CHEMOTHERAPY TREATMENT Assessment: CHART REVIEWED, EVENTS NOTED. PATIENT IS A 61 Y/O FEMALE ADMITTED FOR RECTAL/GI BLEEDING. PATIENT HAS RECENTLY STARED CHEMOTHERAPY FOR SMALL BOWEL LYMPHOMA, AND HAS RECEIVED SEVERAL UNITS OF PRBC'S SINCE ADMIT. PATIENT'S DAUGHTER WAS AT BEDSIDE AND ANSWERED QUESTIONS ABOUT PATIENT. PATIENT AND DAUGHTER STATED PATIENT HAS A GOOD APPETITE WITH A 60# WEIGHT LOSS OVER LAST 4-5 MONTHS WHICH THEY BELIEVE IS D/T HER BOUTS OF DIARRHEA. WEIGHT HX PER [facility] DOES SHOW A 40# WEIGHT LOSS OVER THE LAST 8 MONTHS. SINCE ADMIT PATIENT HAS NO C/O N/V/D/C AND HER DIET WAS UPGRADED FROM LIQUIDS TO REGULAR YESTERDAY. PATIENT STATED SHE TOLERATED A GRILLED CHEESE SANDWICH WITH VEGETABLE SOUP. THIS RD REITEREATED TO PATIENT THE IMPORTANCE OF MAINTAINING HER WEIGHT AND EATING A WELL BALANCED DIET. THIS RD ALSO DISCUSSED THE NUTRITION IMPLICATIONS THAT CAN ARISE FROM HER RECENTLY STARTED CHEMO TREATMENTS. RECOMMEND ENSURE TID WITH MEALS TO PROMOTE ADEQUATE KCAL AND PROTEIN INTAKES. BUMETANIDE AND PSYCH MEDICATIONS MAY CAUSE WEIGHT AND APPETITE FLUCTUATIONS. Dx: UNINTENTIONAL WEIGHT LOSS R/T CURRENT CONDITION, CHEMO TREATMENTS, DIARRHEA AEB 60# WEIGHT LOSS X 4-5 MONTHS Intervention: REGULAR DIET, SUPPLEMENTATION, MEDS/FLUIDS PER MD, RD ASSESSMENT Monitoring, Evaluation and Goals: 1. ADEQUATE PO INTAKES >50% OF MEALS [facility] Nutrition Therapy DATE: 10/07/16 Patient: VIC PATINO TERRY Physician: RYNE Address: [address] [facility] Room/Bed: [address] [place] [address], Zip: [place] [address] Admit Date: 10/06/16 Date of : 55 Height: 5 9 Weight: 160 72.57 2. PREVENT, CORRECT MICRO/MACRO NUTRIENT DEFICIENCIES 3. MAINTAIN CURRENT WEIGHT, PREVENT FURTHER WEIGHT LOSS MONITOR: WEIGHTS, LABS, PO/FLUID/SUPPLEMENT INTAKES Recommendations: 1. CONTINUE REGULAR DIET TOLERATED. SEND ENSURE TID WITH MEALS TO PROMOTE ADEQUATE KCAL AND PROTEIN INTAKES, AND PREVENT FURTHER WEIGHT LOSS 2. ENCOURAGE ADEQUATE PO, FLUID, AND SUPPLEMENT INTAKES 3. OBTAIN WEIGHTS ROUTINELY 4. CONSULT RD WITH ANY FURTHER NUTRITION QUESTIONS OR CONCERNS RD TO F/U PER PROTOCOL AND PRN R/T PATIENT MILD TO MODERATELY COMPROMISED Respectfully, OBINNA WEN, LIN, LD [employer] [facility] cc: client file
--- NOTE | ~2016-10-06 | CO ---
Unit #: [id number] #: [id number] Patient: VIC LANIER [id number] [address] [address] [id number] I MR#: [id number] NAME: VIC LANIER ROOM: 217 Age: 61 Sex: F Admission Date: 10/06/2016 : 1955 Attending Physician: Naye Dukes M.D. Primary Care Physician: Ciaran Ospina M.D. Consultation Date: 10/10/2016 CONSULTATION REPORT REASON FOR CONSULTATION Shortness of breath. HISTORY OF PRESENT ILLNESS The patient basically is a 61-year-old female with past medical history of congestive heart failure, CVA, chronic kidney disease, arthritis, lupus and presents with a complaint of rectal bleed. I am seeing her at the bedside; complains of mild shortness of breath, denies any nausea, vomiting, diarrhea. PHYSICAL EXAMINATION VITAL SIGNS: Temperature 98. Pulse 87. Respiration 12. Blood pressure 130/70. NEUROLOGICAL: Awake, alert and oriented. No neuro deficit. HEENT: PERRLA plus EOMI. NECK: Supple. No JVD. CHEST: Bilateral air entry. Bilateral mild rhonchi. GASTROINTESTINAL: Nontender. Soft. Bowel sounds positive. EXTREMITIES: No edema. SKIN: No rashes. No ulcer. LYMPHATIC: No lymphadenopathy. PAST MEDICAL HISTORY CHF, CVA, chronic kidney disease, rheumatoid arthritis, SLE, peripheral vascular disease, hysterectomy, cholecystectomy, right breast lumpectomy. ALLERGIES Aspirin, penicillin. SOCIAL HISTORY Nonsmoker, no alcohol, no drug abuse. FAMILY HISTORY None per record. DIAGNOSTIC STUDIES LABORATORY: Labs have been reviewed. IMAGING: Has been reviewed. ASSESSMENT 1. Dyspnea. 2. Gastrointestinal bleed. Unit #: [id number] #: [id number] Patient: VIC LANIER 3. Chronic kidney disease. 4. Hypertension. 5. Lymphoma. 6. Dyslipidemia. PLAN Plan is to continue oxygen, bronchodilator, GI and DVT prophylaxis, order imaging. Please see orders for detailed plan. Thank you very much for this consultation. Dictated by... Helene Ang TD: 10/22/2016 13:11 JOB #: [id number] CONSULTATION REPORT Page 1 of 1 X Bonita Carranza MD CONSULTATION REPORT
--- NOTE | ~2016-10-06 | CO ---
Unit #: [id number] #: [id number] Patient: VIC LANIER [id number] [address] [address] [id number] I MR#: [id number] NAME: VIC LANIER ROOM: 73380 Age: 61 Sex: F Admission Date: 10/06/2016 : 1955 Attending Physician: Naye Dukes M.D. Primary Care Physician: Ciaran Ospina M.D. CONSULTATION REPORT REASON FOR CONSULTATION Renal followup. HISTORY OF PRESENT ILLNESS The patient is a 61-year-old female who was diagnosed with small bowel lymphoma and underwent chemotherapy. She was discharged yesterday, received prednisone and received vincristine, cyclophosphamide, Rituxan, etoposide for the chemotherapy. Her baseline creatinine is 1 to 1.5. The patient did not have any electrolyte or renal failure/acute kidney injury post chemotherapy. The patient comes back with GI bleed and lower abdominal pain. CT scan does not reveal any free air. 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 The hemoglobin is 7.9. Creatinine is 1. Patient has previous history of lupus and rheumatoid arthritis, treated previously with Plaquenil and Humira. PAST MEDICAL HISTORY The past medical history is significant for hypertension, CKD 3, history of CVA, history of rheumatoid arthritis, history of SLE, history of peripheral vascular disease. PAST SURGICAL HISTORY Past surgical history is significant for hysterectomy, cholecystectomy, right breast lumpectomy, right total knee replacement. ALLERGIES Penicillin, aspirin and oxycodone. SOCIAL HISTORY Does not drink. Does not smoke. FAMILY HISTORY Unremarkable for endstage renal disease. REVIEW OF SYSTEMS CVS: No chest pain. RESPIRATORY: No cough or expectoration. GI: As above. RESPIRATORY: Cough but no expectoration. : No hematuria. No dysuria. BUSINESS INFORMATION MANAGER: No seizures. PHYSICAL EXAMINATION GENERAL: The patient is awake, alert and oriented. VITAL SIGNS: The temperature is 102.4, pulse is 121 per minute, Unit #: [id number] #: [id number] Patient: VIC LANIER saturation 96%, blood pressure is 134/83. HEAD: Atraumatic. EYES: Extraocular movements are intact. Sclerae are anicteric. NECK: Neck is supple. There is no elevation of the JVD. CHEST: The chest has decreased air entry in the bases. CARDIOVASCULAR: S1, S2 audible. There is no S3, no S4. ABDOMEN: Soft. There is no organomegaly. No guarding. No rigidity. No rebound tenderness. EXTREMITIES: There is trace edema BUSINESS INFORMATION MANAGER EXAM: Intact. IMPRESSION 1. Chronic kidney disease stage 3. Renal function is close to baseline. Watch for any infection-related, volume-related ATN. Volume will be replaced with packed RBCs that have been ordered. Once the patient is able to take by mouth, we will refrain from any IV fluids. 2. GI bleed post chemotherapy. No free air or perforation on the CT scan. Might need GI workup. 3. History of CHF. 4. Small bowel lymphoma and mesenteric lymphoma. 5. Acute anemia. 6. Malnutrition/hypoalbuminemia. Will follow the patient with you. Dictated by... Helene Cedeño TD: 10/06/2016 12:30 JOB #: [id number] CONSULTATION REPORT Page 1 of 1 X Wes Traylor MD CONSULTATION REPORT
--- NOTE | ~2016-10-06 | CO ---
Unit #: [id number] #: [id number] Patient: VIC LANIER [id number] [address] [address] [id number] I MR#: [id number] NAME: VIC LANIER ROOM: 12662 Age: 61 Sex: F Admission Date: 10/06/2016 : 1955 Attending Physician: Naye Dukes M.D. Primary Care Physician: Ciaran Ospina M.D. CONSULTATION REPORT REASON FOR CONSULTATION Renal followup. The patient is a 60-year-old -[place] female, recently diagnosed with lymphoma. The patient was seen by oncology and likely to be started on cisplatin. Her previous history is significant for rheumatoid arthritis and SLE. Follows with Dr. Morris for rheumatology and is on Arava and Plaquenil. The patient's baseline creatinine level is 1 to 1.5. Previous history of CHF with followup with Dr. Schaefer. The patient has not needed dialysis in the past. PAST MEDICAL HISTORY 1. Significant for CHF. 2. CVA. 3. 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 4. History of rheumatoid arthritis. 5. History of systemic lupus erythematosus. 6. History of peripheral vascular disease. PAST SURGICAL HISTORY Significant for: 1. Hysterectomy. 2. Cholecystectomy. 3. Right breast lumpectomy. 4. Right total knee replacement. ALLERGIES Aspirin, penicillin, oxycodone. SOCIAL HISTORY Does not drink, does not smoke. FAMILY HISTORY Unremarkable for end stage renal disease. REVIEW OF SYSTEMS CVS: No chest pain. RESPIRATORY: No cough or expectoration. GI: As above. : No hematuria, no dysuria. FIRE EQUIPMENT INSPECTOR: No seizures. Unit #: [id number] #: [id number] Patient: VIC LANIER The patient is noted to have, on CT scan and PET scan, small bowel lymphoma and suspected mesenteric infiltration with soft tissue nodule with suspicion of lymphomatous involvement on PET scan and left external iliac chain node. PHYSICAL EXAMINATION GENERAL: The patient is awake, alert, and oriented. VITAL SIGNS: Temperature is 98.8, pulse is 98/minute, blood pressure is 118/85, saturation is 99%. HEENT: Head is atraumatic. Extraocular movements are intact. Sclerae are anicteric. NECK: Supple. CHEST: Clear. Air entry is equal bilaterally. Breathing is vesicular in nature. HEART: S1, S2 audible. There is no S3, no S4. ABDOMEN: Soft. There is no organomegaly. No guarding, no rigidity, no rebound tenderness. There is no edema. FIRE EQUIPMENT INSPECTOR EXAM: Grossly intact. DIAGNOSTIC STUDIES LABORATORY: WBC is 10.1, H and H is 8.2 and 26.4, platelets 375, sodium is 134, potassium is 4.4, chloride 99, CO2 is 28, BUN is 33, creatinine is 1.4, glucose 164, calcium is 8.4, uric acid is 2.9, AST is 16, ALT is 16, alkaline phos. is 82/minute, total bilirubin is 0.2, total bilirubin is 0.2, albumin is 2.5. WBC is 1.1, hemoglobin is 8.2, hematocrit is 26.4, platelets 375. Complements are normal. The anti-double stranded DNA is less than 1. IMPRESSION 1. Chronic kidney disease stage 3: The renal function is close to baseline. Volume is satisfactory. Will follow the protocol for hydration for cisplatin and follow the renal function. The complements are normal. No indication of flare of lupus. 2. Hypertension. 3. Small bowel lymphoma. 4. Hyperlipidemia. Dictated by... Helene Cedeño TD: 10/05/2016 08:38 JOB #: [id number] Unit #: [id number] #: [id number] Patient: VIC LANIER CONSULTATION REPORT Page 1 of 1 X Wes Traylor MD CONSULTATION REPORT
--- NOTE | ~2016-10-06 | CT57 ---
[facility] A Service of [facility] RADIOLOGY TEXT RESULTS PATIENT: VIC LANIER LOCATION: [facility] 217-01 : 55 UNIT #: [id number] AGE: [address]: Naye Dukes MD SEX: F ORDER DR: [id number] [facility] [address] [facility]. [place], [place] [address] [id number] I MR#: [id number] Acc #: [id number] NAME: VIC LANIER : 1955 SEX: F STUDY DATE/TIME: 10/11/2016 9:14 UNIT: [facility] ROOM: [facility] STUDY DESCRIPTION: CT Chest Wo Cont Attending Physician: Naye Dukes M.D. Ordering Physician: Bonita Carranza M.D. Primary Care Physician: Ciaran Ospina M.D. MEDICAL IMAGING REPORT This report is preliminary unless electronic signature is present EXAM CT chest without contrast INDICATIONS Shortness of breath, congestion, wheezing for 3 months. Patient does have a history of lymphoma. This is actually a small bowel lymphoma. She was diagnosed in September 2016. TECHNIQUE This CT exam was performed with one or more of the following radiation dose reduction techniques: automatic exposure control, adjustment of mA and/or kV according to patient size, and iterative reconstruction. Axial CT images were obtained from thoracic inlet through the dome of the diaphragm. No intravenous contrast material was administered. FINDINGS The patient has some linear scarring identified at the lung bases bilaterally. No infiltrates are seen. No suspicious pulmonary nodules or masses are identified. The thyroid gland trachea esophagus appear unremarkable. There is a trace pericardial patient. Patient has a right internal jugular vein MediPort which terminates at the cavoatrial junction. Main pulmonary artery is dilated which can be seen in the setting of pulmonary arterial hypertension. Mediastinal lymph nodes do not appear pathologically enlarged. There are some coronary artery calcifications. Images through the upper abdomen do not demonstrate any acute abnormalities. The gallbladder is surgically absent. Review of bony windows does not demonstrate any aggressive osseous abnormalities. [facility] A Service [facility] RADIOLOGY TEXT RESULTS PATIENT: VIC LANIER [facility] 217-01 [facility] [id number] [birth year] UNIT #: [id number] AGE: [address]: Naye Dukes MD SEX: F ORDER DR: IMPRESSION. 1. No acute intrathoracic process is seen to explain the patient's symptomatology. I do not see any infiltrates and no suspicious pulmonary nodules or masses are seen. 2. Enlargement of the main pulmonary artery. This finding can be seen in the setting of pulmonary arterial hypertension. Dictated by... Jessika Bauer M.D. THIS IS AN ELECTRONICALLY VERIFIED REPORT Jessika Bauer M.D. at 10/11/2016 4:54 PM AFF/ea TD: 10/11/2016 14:47 JOB #: [id number] MEDICAL IMAGING REPORT Page 1 of 1 COPY
--- NOTE | ~2016-10-06 | CO ---
Unit #: [id number] #: [id number] Patient: RACHEL LANIER [id number] [address] [address] [id number] I MR#: [id number] NAME: RACHEL LANIER ROOM: 217 Age: 61 Sex: F Admission Date: 10/06/2016 : 1955 Attending Physician: Naye Dukes M.D. Primary Care Physician: Ciaran Ospina M.D. Requesting Physician: Naye Dukes M.D. Consultation Date: 10/06/2016 CONSULTATION REPORT REASON FOR CONSULTATION Large B cell lymphoma. 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 The patient was discharged from the hospital on 10/05/2016 after completing her first cycle of chemotherapy done as an inpatient because of her frailty and GI involvement. Following discharge home her daughter called me up at 11 p.m. at night to report that she had awakened up with a sense of pressure in the abdomen and had a bright red bloody stool without any fecal matter. I recommended she be seen in the emergency room, where she was seen and admitted for further evaluation. Her hemoglobin dropped from 8.3 at the time of discharge to 7.8 and thereafter 7.5. She is currently being transfused a unit of packed cells. The patient herself tells me that she has had some lower abdominal discomfort and feels slightly tender. She has had no urinary frequency, dysuria, nausea or vomiting. In fact, she has a good appetite and is feeling extremely hungry. No fever or chills. PAST MEDICAL HISTORY 1. Ulceration and lupus diagnosed in 1999. She has been treated with Humira in the past and most recently Arava. 2. Large cell lymphoma diagnosed after she lost 40 pounds with diarrhea. Colonoscopy biopsy on 08/15/2016 showed significant ulceration and inflammation of the distal 68 cm of the terminal ileum with multiple biopsies showing large lymphoma. 3. She also has a history of congestive cardiomyopathy with an ejection fraction of 25%, and, hence received nonanthracycline- based chemotherapy. Official analysis of lymphoma was positive for BcL 6, but negative for BcL 2. Hence, C-MYC for mass suppression was negative. PAST SURGICAL HISTORY 1. Hysterectomy. 2. Cholecystectomy. 3. Lymph node excision in 1999 from the jaw. SOCIAL HISTORY Never smoker. No alcohol. She has a daughter who is a nurse. She has three other children, including an adopted daughter. FAMILY HISTORY Lung cancer in father at age 82. Unit #: [id number] #: [id number] Patient: RACHEL LANIER ALLERGIES Penicillin, cyclosporin, oxycodone, baclofen and adhesive tape. REVIEW OF SYSTEMS Fourteen point review of systems was done. CONSTITUTIONAL: As discussed above. EYES: Negative. EARS, NOSE, MOUTH AND THROAT: Negative. CARDIOVASCULAR: Negative. RESPIRATORY: Negative. GASTROINTESTINAL: As discussed. GENITOURINARY: Negative. NEUROLOGIC: Negative. ALLERGIC: Negative. LYMPH: Negative. SKIN: Negative. MUSCULOSKELETAL: Arthritis from her lupus and rheumatoid arthritis. PSYCHIATRIC: Negative. PHYSICAL EXAMINATION GENERAL: VITALS: Temperature 99.3, pulse rate 97, respiratory rate 18, blood pressure 121/75, O2 saturations 100% on room air. HEENT: Pallor. No icterus. Pupils equal and reacting well to light. Mucous membranes are moist. NECK: No lymphadenopathy, jugular venous distension or thyromegaly. LUNGS: Chest expansion is symmetric. Normal breath sounds. HEART: First and second heart sounds are head and regular with no murmurs, gallops or rubs. ABDOMEN: Nondistended, soft, slightly tender in the suprapubic region. Bowel sounds active. EXTREMITIES: Warm with 1+ edema. NEUROLOGIC: She is awake, alert and oriented times three without any focal findings. PSYCHIATRIC: Normal affect. SKIN: Negative. LYMPHATIC: No palpable lymph nodes. MUSCULOSKELETAL: Negative. DIAGNOSTIC STUDIES IMAGING: CT scan of the abdomen and pelvis was personally reviewed by me and overall shows marginal improvement with stable right epicardial lymph node with thickening of the small bowel loops with a somewhat better and small bowel pneumonitis which is also better. LABORATORY: CBC, white count 5.5, hemoglobin 7.5, platelets 319,000. Metabolic panel shows BUN 20, creatinine 1. ASSESSMENT/PLAN Rachel Solomon is 61 years old with multiple complex medical problems including lupus, rheumatoid arthritis, now with diffuse large B cell lymphoma of the ileocecal area, staged as a II EB. She has had her first cycle of non-anthracycline chemotherapy in view of her dilated cardiomyopathy and now is admitted with bright red blood per rectum. She has been seen by surgeons who recommended conservative management and given the recent colonoscopy that showed no other significant pathology, I think this is the best option at this point. She was found to be anemic prior to her treatment with a further drop in hemoglobin I would recommend Unit #: [id number] #: [id number] Patient: RACHEL LANIER transfusion of a second unit of packed cells in addition to the first, given that she is likely to have chemotherapy toxicity and unlikely to be able to respond to her severe anemia. Will need to observe further to see whether she has continued bleeding, which could suggest mucosal involvement from her large cell lymphoma. She is at risk for GI perforation. Plans were discussed in detail with the patient and her daughter who is at bedside. Dictated by... Daniel Theodore M.D. VMGisela/gz TD: 10/11/2016 10:22 JOB #: [id number] CONSULTATION REPORT Page 1 of 1 X Daniel Theodore MD X CONSULTATION REPORT
--- NOTE | ~2016-10-06 | FU ---
[facility] Nutrition Therapy DATE: 10/12/16 Patient: VIC CAREY STEWART Physician: RYNE Address: [address] Room/Bed: [address] [place] [address], Zip: [place] [address] Admit Date: 10/06/16 Date of : [birth year] Height: 5 9 Weight: 160 72.57 NUTRITION MONITORING/FOLLOW-UP: Reason: Nutrition follow up Admitting dx: 61 y/o female admitted with GIB Anthropometrics: Ht: 69", admission wt: 160 lbs, current wt: 159 lbs, BMI: 23.6 (normal) Labs: Reviewed; WNL Meds: Na bicarb, PPI, Colace GI: Last BM 10/11 (diarrhea, abdomen tender) Skin: No issues Assessment: Chart reviewed, events noted. Patient got EGD yesterday showing significant ulceration of terminal ileum with normal colon and small internal hemorrhoids, ileum biopsies taken. Was on regular diet 10/06-, then NPO/clear liquids off and on from 10/09-, advanced to GI soft diet today with Ensure ordered BID, which she has tolerated so far. Overall feeling better, MD wrote ok for discharge in chart, plan is home. Dx: Unintentional weight loss r/t current condition, chemo, diarrhea AEB 60 lb loss in 4-5 months - ACTIVE (weight stable since admission) Intervention: None at this time Monitoring, Evaluation and Goals: 1. PO intake > 50% of meals - IN PROGRESS 2. Prevent unintentional weight loss - IN PROGRESS (weight stable since admission) Monitor: Per protocol, criteria to determine if above goals met Recommendations: 1. Agree with GI soft diet, encourage adequate oral intake at each meal and snacks prn. 2. Agree with Ensure BID. 3. Bowel regimen per MD. Status: Mild nutrition risk [facility] Therapy DATE: 10/12/16 Patient: VIC STEWART Physician: RYNE Address: [address] [facility] Room/Bed: [address] [place] [address], Zip: [place] [address] Admit Date: 10/06/16 Date of : [birth year] Height: 5 9 Weight: 160 72.57 Respectfully, Kaylie Cline, RD, LD [facility] cc: client file
[~2016-10-06 01:07] MED LIST changes: -ASPIRIN81 MG PO; -BENZONATATE PO; -DOCUSATE SODIU100 MG PO; -MARINOL2.5 M1 PO; -PREDNISONE PO
[2016-10-06 02:34] LABS: BASOPHIL% 0.4 % (0-2.5); EOSINOPHIL# 0.2 X10e3 (0-0.7); EOSINOPHIL% 4.9 % (0.0-7.0); HEMATOCRIT 25.5 % (35.0-45.0); HEMOGLOBIN 7.9 gm/dL (12.0-16.0); LYMPHOCYTE# 0.8 X10e3 (1.0-3.5); LYMPHOCYTE% 16.7 % (17.0-45.0); MEAN CELL VOLUME 86.9 FL (83-96); MEAN CORPUSCULAR HEMOGLOBIN 26.9 PG (28-34); MEAN CORPUSCULAR HGB CONC 30.9 g/dL (30-36); MEAN PLATELET VOLUME 7.3 FL (6.5-11.5); MONOCYTE# 0.4 X10e3 (0-1.0); MONOCYTE% 7.7 % (3.0-12.0); NEUTROPHIL# 3.3 X10e3 (1.5-7.1); NEUTROPHIL% 70.3 % (40-75); PLATELET COUNT 314 X10e3 (140-420); RED BLOOD COUNT 2.94 X10e (3.90-5.30); RED CELL DISTRIBUTION WIDTH 16.3 % (11.0-15.5)
[2016-10-06 02:35] LABS: DIFF IND YES; WHITE BLOOD COUNT 4.7 X10e3 (4.0-10.5)
[2016-10-06 02:50] LABS: PARTIAL THROMBOPLASTIN TIME 23.4 SECONDS (23.5-31.3); PROTHROMBIN TIME (PATIENT) 10.1 SECONDS (9.6-11.5)
[2016-10-06 02:51] LABS: PLATELET ESTIMATE NORMAL (NORMAL)
[2016-10-06 02:52] LABS: ANISOCYTOSIS SL; OVALOCYTES PRESENT; POIKILOCYTOSIS SL; STOMATOCYTE PRESENT; TEAR DROP CELLS PRESENT
[2016-10-06 02:54] LABS: ALBUMIN SERUM 2.4 g/dL (3.5-5.0); BILIRUBIN, DIRECT 0.1 mg/dL (0.0-0.2); BILIRUBIN,INDIRECT 0.3 mg/dL (0.0-0.9); BILIRUBIN,TOTAL 0.4 mg/dL (0.2-2.0); CALCIUM SERUM 8.2 mg/dL (8.4-10.2); GLOM FILT RATE Estimated 70.5 mL/min (>60); POTASSIUM 4.4 mmol/L (3.5-5.1); PROTEIN TOTAL SERUM 5.9 g/dL (6.0-8.3)
[2016-10-06 10:58] LABS: HEMATOCRIT 23.6 % (35.0-45.0); HEMOGLOBIN 7.5 gm/dL (12.0-16.0); MEAN CELL VOLUME 85.5 FL (83-96); MEAN CORPUSCULAR HGB CONC 31.6 g/dL (30-36); MEAN PLATELET VOLUME 7.6 FL (6.5-11.5); RED BLOOD COUNT 2.76 X10e (3.90-5.30); RED CELL DISTRIBUTION WIDTH 16.5 % (11.0-15.5); WHITE BLOOD COUNT 5.5 X10e3 (4.0-10.5)
[2016-10-06 20:18] LABS: HEMATOCRIT 29.7 % (35.0-45.0); MEAN CELL VOLUME 84.5 FL (83-96); MEAN CORPUSCULAR HEMOGLOBIN 27.2 PG (28-34); MEAN CORPUSCULAR HGB CONC 32.1 g/dL (30-36); MEAN PLATELET VOLUME 7.5 FL (6.5-11.5); RED BLOOD COUNT 3.51 X10e (3.90-5.30); RED CELL DISTRIBUTION WIDTH 15.6 % (11.0-15.5)
[2016-10-06 20:24] LABS: HEMOGLOBIN 9.5 gm/dL (12.0-16.0)
[2016-10-07 04:58] LABS: BASOPHIL# 0.1 X10e3 (0-0.3); BASOPHIL% 0.2 % (0-2.5); DIFF IND YES; EOSINOPHIL% 0.1 % (0.0-7.0); HEMATOCRIT 28.9 % (35.0-45.0); HEMOGLOBIN 9.2 gm/dL (12.0-16.0); LYMPHOCYTE# 0.7 X10e3 (1.0-3.5); MEAN CELL VOLUME 84.6 FL (83-96); MEAN CORPUSCULAR HEMOGLOBIN 26.9 PG (28-34); MEAN CORPUSCULAR HGB CONC 31.8 g/dL (30-36); MEAN PLATELET VOLUME 7.7 FL (6.5-11.5); MONOCYTE% 0.1 % (3.0-12.0); NEUTROPHIL# 31.2 X10e3 (1.5-7.1); NEUTROPHIL% 97.6 % (40-75); PLATELET COUNT 283 X10e3 (140-420); RED BLOOD COUNT 3.41 X10e (3.90-5.30); RED CELL DISTRIBUTION WIDTH 15.9 % (11.0-15.5)
[2016-10-07 05:09] LABS: ANISOCYTOSIS MOD; OVALOCYTES PRESENT; PLATELET ESTIMATE NORMAL (NORMAL); STOMATOCYTE PRESENT
[2016-10-07 06:04] LABS: CALCIUM SERUM 8.4 mg/dL (8.4-10.2); GLOM FILT RATE Estimated 70.5 mL/min (>60); POTASSIUM 4.7 mmol/L (3.5-5.1)
[2016-10-07 14:05] LABS: HEMATOCRIT 28.4 % (35.0-45.0); MEAN CELL VOLUME 84.8 FL (83-96); MEAN CORPUSCULAR HEMOGLOBIN 26.8 PG (28-34); MEAN CORPUSCULAR HGB CONC 31.6 g/dL (30-36); MEAN PLATELET VOLUME 7.9 FL (6.5-11.5); RED BLOOD COUNT 3.36 X10e (3.90-5.30); RED CELL DISTRIBUTION WIDTH 15.7 % (11.0-15.5)
[2016-10-07 21:02] LABS: HEMATOCRIT 26.2 % (35.0-45.0); HEMOGLOBIN 8.3 gm/dL (12.0-16.0); MEAN CORPUSCULAR HEMOGLOBIN 26.5 PG (28-34); MEAN CORPUSCULAR HGB CONC 31.6 g/dL (30-36); MEAN PLATELET VOLUME 7.6 FL (6.5-11.5); RED BLOOD COUNT 3.12 X10e (3.90-5.30); RED CELL DISTRIBUTION WIDTH 15.8 % (11.0-15.5); WHITE BLOOD COUNT 42.5 X10e3 (4.0-10.5)
[2016-10-08 05:19] LABS: HEMATOCRIT 25.5 % (35.0-45.0); HEMOGLOBIN 7.9 gm/dL (12.0-16.0); MEAN CELL VOLUME 85.4 FL (83-96); MEAN CORPUSCULAR HEMOGLOBIN 26.4 PG (28-34); MEAN CORPUSCULAR HGB CONC 30.9 g/dL (30-36); MEAN PLATELET VOLUME 7.6 FL (6.5-11.5); RED BLOOD COUNT 2.98 X10e (3.90-5.30); RED CELL DISTRIBUTION WIDTH 15.8 % (11.0-15.5); WHITE BLOOD COUNT 41.9 X10e3 (4.0-10.5)
[2016-10-08 05:48] LABS: BUN/CREATININE RATIO 27.77; CALCIUM SERUM 7.7 mg/dL (8.4-10.2); CREATININE SERUM 0.9 mg/dL (0.6-1.4); POTASSIUM 4.3 mmol/L (3.5-5.1)
[2016-10-08 14:31] LABS: HEMATOCRIT 21.5 % (35.0-45.0); MEAN CORPUSCULAR HEMOGLOBIN 26.6 PG (28-34); MEAN CORPUSCULAR HGB CONC 31.7 g/dL (30-36); MEAN PLATELET VOLUME 7.5 FL (6.5-11.5); RED BLOOD COUNT 2.56 X10e (3.90-5.30); RED CELL DISTRIBUTION WIDTH 15.6 % (11.0-15.5); WHITE BLOOD COUNT 33.8 X10e3 (4.0-10.5)
[2016-10-08 14:32] LABS: HEMOGLOBIN 6.8 gm/dL (12.0-16.0)
[2016-10-08 20:31] LABS: HEMATOCRIT 20.7 % (35.0-45.0); MEAN CELL VOLUME 84.4 FL (83-96); MEAN CORPUSCULAR HEMOGLOBIN 26.6 PG (28-34); MEAN CORPUSCULAR HGB CONC 31.5 g/dL (30-36); MEAN PLATELET VOLUME 7.7 FL (6.5-11.5); RED BLOOD COUNT 2.45 X10e (3.90-5.30); RED CELL DISTRIBUTION WIDTH 15.6 % (11.0-15.5); WHITE BLOOD COUNT 31.6 X10e3 (4.0-10.5)
[2016-10-08 20:33] LABS: HEMOGLOBIN 6.5 gm/dL (12.0-16.0)
[2016-10-09 06:44] LABS: HEMATOCRIT 24.8 % (35.0-45.0); HEMOGLOBIN 7.8 gm/dL (12.0-16.0); MEAN CELL VOLUME 85.9 FL (83-96); MEAN CORPUSCULAR HGB CONC 31.4 g/dL (30-36); MEAN PLATELET VOLUME 8.2 FL (6.5-11.5); RED BLOOD COUNT 2.89 X10e (3.90-5.30); RED CELL DISTRIBUTION WIDTH 15.5 % (11.0-15.5); WHITE BLOOD COUNT 28.9 X10e3 (4.0-10.5)
[2016-10-09 07:19] LABS: BUN/CREATININE RATIO 30.9; CREATININE SERUM 1.1 mg/dL (0.6-1.4); GLOM FILT RATE Estimated 62.8 mL/min (>60); POTASSIUM 4.5 mmol/L (3.5-5.1)
[2016-10-09 16:03] LABS: HEMATOCRIT 25.5 % (35.0-45.0); HEMOGLOBIN 8.1 gm/dL (12.0-16.0); MEAN CELL VOLUME 84.2 FL (83-96); MEAN CORPUSCULAR HEMOGLOBIN 26.9 PG (28-34); MEAN PLATELET VOLUME 7.7 FL (6.5-11.5); RED BLOOD COUNT 3.03 X10e (3.90-5.30); RED CELL DISTRIBUTION WIDTH 15.9 % (11.0-15.5); WHITE BLOOD COUNT 23.3 X10e3 (4.0-10.5)
[2016-10-10 05:22] LABS: HEMOGLOBIN 7.7 gm/dL (12.0-16.0); MEAN CELL VOLUME 84.1 FL (83-96); MEAN CORPUSCULAR HGB CONC 32.1 g/dL (30-36); MEAN PLATELET VOLUME 7.7 FL (6.5-11.5); RED BLOOD COUNT 2.86 X10e (3.90-5.30); RED CELL DISTRIBUTION WIDTH 16.2 % (11.0-15.5); WHITE BLOOD COUNT 15.8 X10e3 (4.0-10.5)
[2016-10-10 06:54] LABS: ALBUMIN SERUM 2.3 g/dL (3.5-5.0); BILIRUBIN,TOTAL 0.5 mg/dL (0.2-2.0); BUN/CREATININE RATIO 28.88; CALCIUM SERUM 8.1 mg/dL (8.4-10.2); CREATININE SERUM 0.9 mg/dL (0.6-1.4); POTASSIUM 4.2 mmol/L (3.5-5.1)
[2016-10-11 06:59] LABS: HEMOGLOBIN 9.4 gm/dL (12.0-16.0); MEAN CELL VOLUME 85.2 FL (83-96); MEAN CORPUSCULAR HEMOGLOBIN 27.7 PG (28-34); MEAN CORPUSCULAR HGB CONC 32.5 g/dL (30-36); MEAN PLATELET VOLUME 7.8 FL (6.5-11.5); RED BLOOD COUNT 3.41 X10e (3.90-5.30)
[2016-10-12 06:16] LABS: HEMATOCRIT 32.2 % (35.0-45.0); HEMOGLOBIN 10.2 gm/dL (12.0-16.0); MEAN CELL VOLUME 86.9 FL (83-96); MEAN CORPUSCULAR HEMOGLOBIN 27.6 PG (28-34); MEAN CORPUSCULAR HGB CONC 31.7 g/dL (30-36); MEAN PLATELET VOLUME 8.2 FL (6.5-11.5); RED BLOOD COUNT 3.7 X10e (3.90-5.30); RED CELL DISTRIBUTION WIDTH 16.1 % (11.0-15.5); WHITE BLOOD COUNT 12.4 X10e3 (4.0-10.5)
[2016-10-12 06:43] LABS: ALBUMIN SERUM 2.8 g/dL (3.5-5.0); BILIRUBIN,TOTAL 0.6 mg/dL (0.2-2.0); BUN/CREATININE RATIO 11.81; CALCIUM SERUM 8.4 mg/dL (8.4-10.2); CREATININE SERUM 1.1 mg/dL (0.6-1.4); GLOM FILT RATE Estimated 62.8 mL/min (>60); POTASSIUM 4.4 mmol/L (3.5-5.1); PROTEIN TOTAL SERUM 6.1 g/dL (6.0-8.3)
[2016-10-12] MEDS ORDERED: BENZONATATE PO (20:31)
[2016-10-12] MEDS ORDERED: DOCUSATE SODIU100 MG PO (20:33)
== END 2016-10-12 21:15 | disposition home or self-care (01) | DRG 378 ==
LOC: CED 01:07 → CEDOF 04:31 → C2A 04:31 → CED 04:43 → CEDOF 04:43 → C2A 14:45
PROVIDERS: Emergency Medicine; Internal Medicine; Internal Medicine Hematology & Oncology; Internal Medicine Nephrology; Physician Assistant Medical
PROC: 30233N1 Transfusion of Nonautologous Red Blood Cells into Peripheral Vein, Percutaneous Approach (ICD-10-PCS; 2016-10-06)
PROC: 0DBB8ZX Excision of Ileum, Via Natural or Artificial Opening Endoscopic, Diagnostic (ICD-10-PCS; principal; 2016-10-11 11:41)
DX: K92.2 Gastrointestinal hemorrhage, unspecified (principal); C85.83 Other specified types of non-Hodgkin lymphoma, intra-abdominal lymph nodes; E46 Unspecified protein-calorie malnutrition; N17.9 Acute kidney failure, unspecified; M32.9 Systemic lupus erythematosus, unspecified; N18.3 Chronic kidney disease, stage 3 (moderate); M06.9 Rheumatoid arthritis, unspecified; I73.9 Peripheral vascular disease, unspecified; Z86.73 Personal history of transient ischemic attack (TIA), and cerebral infarction without residual deficits; Z90.710 Acquired absence of both cervix and uterus; Z90.49 Acquired absence of other specified parts of digestive tract; Z96.651 Presence of right artificial knee joint; Z88.0 Allergy status to penicillin; D64.9 Anemia, unspecified; E78.5 Hyperlipidemia, unspecified; M79.7 Fibromyalgia; Z68.23 Body mass index [BMI] 23.0-23.9, adult; R05 Cough; R50.9 Fever, unspecified; I12.9 Hypertensive chronic kidney disease with stage 1 through stage 4 chronic kidney disease, or unspecified chronic kidney disease; N18.9 Chronic kidney disease, unspecified
CPT/HCPCS: 36415; 71020; 71250; 74177; 80048; 80053; 80076; 82308; 83010; 83615; 85025; 85027; 85044; 85610; 85730; 86850; 86870; 86885; 86900; 86901; 86905; 86922; 87493; 88305; 94640; 94664; 94760; 96374; 97162; 97165; 99285; G8987-GO; G8988-GO; G8989-GO; J1642; J2270; P9016; Q9967

== ENCOUNTER → 2016-11-22 | Outpatient (CLI) | payer OTHER ==
[~2016-11-22] MED LIST changes: +ASPIRIN81 MG PO; +BENZONATATE PO; +DOCUSATE SODIU100 MG PO; +MARINOL2.5 M1 PO; +PREDNISONE PO
--- NOTE | ~2016-11-22 | CT2 ---
[facility] A Service of [facility] RADIOLOGY TEXT RESULTS PATIENT: VIC LANIER LOCATION: CCAT : 55 UNIT #: [id number] AGE: [address]: Daniel Theodore MD SEX: F ORDER DR: [id number] [facility] [address] [place], [place] [address] [id number] O MR#: [id number] Acc #: [id number] NAME: VIC LANIER : 1955 SEX: F STUDY DATE/TIME: 11/22/2016 13:45 UNIT: CCAT ROOM: STUDY DESCRIPTION: CT Abd and Pelv W Cont Attending Physician: Daniel Theodore M.D. Referring Physician: Daniel Theodore M.D. Ordering Physician: Daniel Theodore M.D. Primary Care Physician: Ciaran Ospina M.D. MEDICAL IMAGING REPORT This report is preliminary unless electronic signature is present EXAM CT abdomen and pelvis, 11/22 INDICATION Diffuse large B-cell lymphoma. Observation of malignant neoplasm. Restaging. TECHNIQUE Axial images were obtained through the abdomen and pelvis following oral and IV contrast. Multiplanar reformats were obtained. This CT exam was performed with one or more of the following radiation dose reduction techniques: automatic exposure control, adjustment of mA and/or kV according to patient size, and iterative reconstruction. COMPARISON 10/06/2016 FINDINGS ABDOMEN: Lung bases are clear except for some mild atelectasis. Gallbladder is surgically absent. No biliary obstruction. The solid organs are within normal limits. All of the patient's oral contrast remains in the stomach, mixed with food debris. This limits evaluation of the remainder of the GI tract. There is still abnormal mesenteric soft tissue compatible with the given history of lymphoma. The unopacified small bowel loops make it difficult to fully characterize the lymphomatous tissue in the mesentery. The bulk of the abnormal soft tissue is now predominantly to the right of the midline as the mesentery is mobile. It measures at least 8.2 cm transversely x 3.2 cm in AP dimension potentially about 7.0 cm craniocaudally. This is a gross approximation. Jejunal loops and some ileal loops are distended with fluid and gas. The degree of distension has increased since the prior study. The right upper quadrant small bowel STS. [facility] A Service of [facility] RADIOLOGY TEXT RESULTS PATIENT: VIC LANIER LOCATION: [facility] : 55 UNIT #: [id number] AGE: [address]: Daniel Theodore MD SEX: F ORDER DR: loop now measures about 4.0 cm in diameter. Small bowel loop in the right lateral mid abdomen measures up to 3.4 cm. There is at least some component of a mid to distal small bowel obstruction. There is some stool in the ascending and transverse colon. The descending and rectosigmoid colon is relatively decompressed. There is a small amount of ascites. PELVIS: There is a small volume of ascites. The bladder is normal. The uterus is surgically absent. There is some decompressed distal ileal loops in the right hemipelvis. Patient is status post lumbar fusion. No clearly suspicious osseous lesions are identified. Small umbilical hernia containing free fluid is present. Findings have been discussed directly with Dr. Theodore via telephone prior to this dictation. IMPRESSION 1. The patient appears to have a [id number] small bowel obstruction. There is increased distension of multiple bowel loops as well as the stomach. All of the patient's oral contrast remains in the stomach. 2. There is clearly still lymphoma in the mesentery. However, due to its movement since the prior study as well as the multiple surrounding unopacified small bowel loops, direct comparison with the prior CT is extremely difficult. See reference measurements above. 3. There is a small volume of ascites in the abdomen and pelvis. 4. Status post cholecystectomy, hysterectomy, and lumbar fusion. STAT * RESULT Dictated by... Sandeep Gill Jr., M.D. THIS IS AN ELECTRONICALLY VERIFIED REPORT Sandeep Gill Jr., M.D. at 11/23/2016 4:46 PM Estefania TD: 11/23/2016 12:22 JOB #: [id number] MEDICAL IMAGING REPORT Page 1 of 1 COPY
[2016-11-22 15:21] LABS: POC - CREATININE 0.94 mg/dL (0.44-1.03); POC - GFR >60.0 mL/min (>60)
== END | disposition home or self-care (01) ==
LOC: CCAT 12:21
PROVIDERS: Internal Medicine Hematology & Oncology
DX: C83.39 Diffuse large B-cell lymphoma, extranodal and solid organ sites (principal); M32.10 Systemic lupus erythematosus, organ or system involvement unspecified; M06.9 Rheumatoid arthritis, unspecified; R18.8 Other ascites; Z90.49 Acquired absence of other specified parts of digestive tract; Z90.710 Acquired absence of both cervix and uterus; Z98.1 Arthrodesis status
CPT/HCPCS: 74177; 82565; Q9967

== ENCOUNTER 2017-01-10 13:12 | Inpatient (IN) | payer OTHER ==
[~2017-01-10] VITALS: Ht 175.3 cm; Wt 94.2 kg
--- NOTE | ~2017-01-10 | HP ---
Unit #: [id number] #: [id number] Patient: RACHEL LANIER [id number] [address] [address] [id number] I MR#: [id number] NAME: RACHEL LANIER ROOM: 305 Age: 61 Sex: F Admission Date: 01/10/2017 : 1955 Attending Physician: Daniel Theodore M.D. Primary Care Physician: Ciaran Ospina M.D. HISTORY AND PHYSICAL CHIEF COMPLAINT Admitted for cycle one of chemotherapy with dose-adjusted EPOCH chemotherapy. HISTORY OF PRESENT ILLNESS Ms. Rachel Solomon is 61 years old with a history of longstanding rheumatoid arthritis and lupus with ileocecal lymphoma diagnosed in July of 2016, who has been treated with chemotherapy with R-COEP. She has had three cycles of chemotherapy with partial response on most recent CT scans. She, overall, lost 60 pounds in weight prior to diagnosis of lymphoma with rectal bleeding. Pathology revealed diffuse large B-cell lymphoma, negative for BCL2 and MYC rearrangement, positive for BCL6 which, after staging with bone marrow aspiration biopsy, was stage 2 EA. Other major medical problems including longstanding lupus and rheumatoid arthritis diagnosed in 1999 and history of Crohn disease. Other major medical problems include hypertension, chronic kidney disease and a history of congestive heart failure, ejection fraction of 45%. PAST SURGICAL HISTORY 1. Hysterectomy. 2. Cholecystectomy. 3. Lymph node excision in 1999 from her let jaw. FAMILY HISTORY Lung cancer in her father at age 82. SOCIAL HISTORY Never smoker. Does not drink any alcohol. She lives with her daughter who is a nurse and has three other children including an adopted daughter. REVIEW OF SYSTEMS Fourteen point review of systems taken. CONSTITUTIONAL: Given the delay in chemotherapy from her last cycle, Ms. Benavides has lost weight with a decreased appetite. Feels fatigued. EYES: Negative. EARS, NOSE, MOUTH AND THROAT: Negative. CARDIOVASCULAR: No chest pain or palpitations. RESPIRATORY: Some chronic shortness of breathing without recent change. GASTROINTESTINAL: Watery diarrhea with four or five loose stools, in part from Crohn disease and in part from her lymphoma. No rectal bleeding. GENITOURINARY: Negative. Unit #: [id number] #: [id number] Patient: RACHEL LANIER ALLERGIC/LYMPHATIC: Negative. SKIN: Negative. PSYCHIATRIC: Negative. ALLERGIC/IMMUNOLOGIC: Rheumatoid arthritis and lupus. She tells me that given the delay in chemotherapy, she has been experiencing significantly more joint pain. LYMPHATIC: No palpable lymph nodes. PHYSICAL EXAMINATION GENERAL: ECOG performance score 2. VITAL SIGNS: Temperature 98.3, pulse rate 95, respiratory rate 16, blood pressure 130/88. Pain is 8 on a scale of 10. O2 sats 100% on room air. Weight is 84.8 kilograms with a BMI of 27. She is a frail, middle aged woman who looks older than stated age. She is awake, alert, oriented x3. HEENT: Shows pallor, no icterus. Mucous membranes are moist. NECK: No adenopathy, JVD, thyromegaly. CARDIOVASCULAR SYSTEM: First and second heart sounds are heard and regular without murmurs, gallops, rubs. LUNGS: Chest expansion is symmetric bilaterally. Currently, normal breath sounds. ABDOMEN: Slightly distended. Soft, nontender. No organomegaly. Bowel sounds active. EXTREMITIES: Warm with good pulses. Trace edema. NEURO EXAMINATION: She is awake, alert, oriented x3 with no focal deficits. PSYCHIATRIC: Normal affect. LYMPHATIC: No palpable lymph nodes. DIAGNOSTIC STUDIES LABORATORY: White count 4.4, hemoglobin 10.5, platelets 231,000. Protime is 10.4, INR 1, PTT is 29.1. Complete metabolic panel shows a BUN of 19, creatinine is 1.1, eGFR is 62.8, total protein 6.2 with an albumin of 3.5. Alkaline phosphatase is 106. ASSESSMENT AND PLAN Ms. Rachel Solomon is 61 years old with stage 2EB diffuse large B cell lymphoma, BCL6 positive, involving the ileocecal region. She has multiple complex medical problems including longstanding rheumatoid arthritis and systemic lupus erythematosus, treated with anti-TNF agents along with Crohn disease and chronic congestive heart failure with an EF of 45%. She will be admitted for cycle one of dose-adjusted EPOCH with omission of Adriamycin given its cardiotoxicity and history of congestive heart failure. She will receive Rituxan, Cytoxan, vincristine, etoposide, with an infusion regimen with Neulasta as an outpatient. Side effects of the various chemotherapeutic agents, which she has received previously, were discussed in detail as well as the differences to be experienced with the infusional regimen. At her request, will plan to ask cardiology to evaluate her during this hospital stay monitoring fluid intake and I's and O's carefully. Plans will be to discharge her home after the completion of infusional chemotherapy. Dictated by Daniel Theodore M.D. Unit #: [id number] #: [id number] Patient: RACHEL LANIER TERESE/df TD: 01/11/2017 11:10 JOB #: [id number] HISTORY AND PHYSICAL Page 1 of 1 X Daniel Theodore MD X HISTORY AND PHYSICAL
[~2017-01-10 13:12] MED LIST changes: -ASPIRIN81 MG PO; -MARINOL2.5 M1 PO; -PREDNISONE PO
[2017-01-10] MEDS ORDERED: ASPIRIN81 MG PO (18:32)
[2017-01-10] MEDS ORDERED: MARINOL2.5 M1 PO (18:46)
[2017-01-10] MEDS ORDERED: PREDNISONE PO (18:47)
[2017-01-10 19:27] LABS: HEMATOCRIT 32.6 % (35.0-45.0); HEMOGLOBIN 10.5 gm/dL (12.0-16.0); MEAN CELL VOLUME 90.6 FL (83-96); MEAN CORPUSCULAR HEMOGLOBIN 29.1 PG (28-34); MEAN CORPUSCULAR HGB CONC 32.1 g/dL (30-36); RED BLOOD COUNT 3.6 X10e (3.90-5.30); RED CELL DISTRIBUTION WIDTH 20.9 % (11.0-15.5); WHITE BLOOD COUNT 4.4 X10e3 (4.0-10.5)
[2017-01-10 19:41] LABS: PARTIAL THROMBOPLASTIN TIME 29.1 SECONDS (23.5-31.3); PROTHROMBIN TIME (PATIENT) 10.4 SECONDS (10.0-11.7)
[2017-01-10 20:03] LABS: ALBUMIN SERUM 3.5 g/dL (3.5-5.0); BILIRUBIN,TOTAL 0.2 mg/dL (0.2-2.0); BUN/CREATININE RATIO 17.27; CALCIUM SERUM 8.6 mg/dL (8.4-10.2); CREATININE SERUM 1.1 mg/dL (0.6-1.4); GLOM FILT RATE Estimated 62.8 mL/min (>60); PROTEIN TOTAL SERUM 6.2 g/dL (6.0-8.3)
[2017-01-11 05:15] LABS: HEMATOCRIT 33.8 % (35.0-45.0); HEMOGLOBIN 10.8 gm/dL (12.0-16.0); MEAN CELL VOLUME 90.7 FL (83-96); MEAN CORPUSCULAR HEMOGLOBIN 29.1 PG (28-34); MEAN CORPUSCULAR HGB CONC 32.1 g/dL (30-36); MEAN PLATELET VOLUME 7.9 FL (6.5-11.5); RED BLOOD COUNT 3.73 X10e (3.90-5.30); RED CELL DISTRIBUTION WIDTH 20.6 % (11.0-15.5); WHITE BLOOD COUNT 3.9 X10e3 (4.0-10.5)
[2017-01-11 07:08] LABS: ALBUMIN SERUM 3.5 g/dL (3.5-5.0); BILIRUBIN,TOTAL 0.3 mg/dL (0.2-2.0); BUN/CREATININE RATIO 17.27; CALCIUM SERUM 8.9 mg/dL (8.4-10.2); CREATININE SERUM 1.1 mg/dL (0.6-1.4); GLOM FILT RATE Estimated 62.8 mL/min (>60); MAGNESIUM 1.7 mg/dL (1.6-3.0); POTASSIUM 4.5 mmol/L (3.5-5.1); PROTEIN TOTAL SERUM 6.3 g/dL (6.0-8.3)
[2017-01-11] MEDS ORDERED: DULOXETINE HCL60 MG PO (09:19)
[2017-01-11] MEDS ORDERED: CYMBALTA30 M1 PO (09:20)
[2017-01-13 05:17] LABS: HEMATOCRIT 33.3 % (35.0-45.0); HEMOGLOBIN 10.7 gm/dL (12.0-16.0); MEAN CELL VOLUME 90.4 FL (83-96); MEAN CORPUSCULAR HEMOGLOBIN 29.1 PG (28-34); MEAN CORPUSCULAR HGB CONC 32.2 g/dL (30-36); RED BLOOD COUNT 3.69 X10e (3.90-5.30); RED CELL DISTRIBUTION WIDTH 20.8 % (11.0-15.5); WHITE BLOOD COUNT 5.5 X10e3 (4.0-10.5)
[2017-01-13 06:05] LABS: BUN/CREATININE RATIO 23.33; CALCIUM SERUM 9.4 mg/dL (8.4-10.2); CREATININE SERUM 0.9 mg/dL (0.6-1.4); POTASSIUM 4.4 mmol/L (3.5-5.1)
[2017-01-14 05:50] LABS: HEMATOCRIT 32.3 % (35.0-45.0); HEMOGLOBIN 10.4 gm/dL (12.0-16.0); MEAN CELL VOLUME 90.4 FL (83-96); MEAN CORPUSCULAR HEMOGLOBIN 29.1 PG (28-34); MEAN CORPUSCULAR HGB CONC 32.1 g/dL (30-36); MEAN PLATELET VOLUME 7.4 FL (6.5-11.5); RED BLOOD COUNT 3.57 X10e (3.90-5.30); RED CELL DISTRIBUTION WIDTH 20.9 % (11.0-15.5); WHITE BLOOD COUNT 4.3 X10e3 (4.0-10.5)
[2017-01-14 06:10] LABS: BUN/CREATININE RATIO 27.77; CALCIUM SERUM 9.2 mg/dL (8.4-10.2); CREATININE SERUM 0.9 mg/dL (0.6-1.4); POTASSIUM 4.4 mmol/L (3.5-5.1)
== END 2017-01-14 16:15 | disposition home or self-care (01) | DRG 847 ==
LOC: C3A PCU 13:12 → UNDOADMIN 17:55 → C3A PCU 17:55
PROVIDERS: Internal Medicine Hematology & Oncology
DX: Z51.11 Encounter for antineoplastic chemotherapy (principal); C83.33 Diffuse large B-cell lymphoma, intra-abdominal lymph nodes; I13.0 Hypertensive heart and chronic kidney disease with heart failure and stage 1 through stage 4 chronic kidney disease, or unspecified chronic kidney disease; I50.9 Heart failure, unspecified; M06.9 Rheumatoid arthritis, unspecified; M32.9 Systemic lupus erythematosus, unspecified; Z90.49 Acquired absence of other specified parts of digestive tract; Z90.710 Acquired absence of both cervix and uterus; N18.9 Chronic kidney disease, unspecified
CPT/HCPCS: 80048; 80053; 82947; 83735; 84100; 85027; 85610; 85730; J1100; J1200; J1642; J1650; J1815; J2469; J9070; J9181; J9310; J9370; Q0167

== ENCOUNTER 2017-01-31 10:20 | Inpatient (IN) | payer OTHER ==
--- NOTE | ~2017-01-31 | DS ---
Unit #: [id number] #: [id number] Patient: VIC LANIER [id number] [address] [address] [id number] I MR#: [id number] NAME: VIC LANIER ROOM: 308 Age: 61 Sex: F Admission Date: 01/31/2017 : 1955 Discharge Date: 02/05/2017 Attending Physician: Daniel Theodore M.D. Primary Care Physician: Ciaran Ospina M.D. DISCHARGE SUMMARY PRINCIPAL DIAGNOSES 1. Diffuse large B cell lymphoma, stage 2B. 2. Rheumatoid arthritis. 3. Systemic lupus erythematosus. 4. Hypertension. 5. History of congestive heart failure. 6. Chronic kidney disease stage 3. DISCHARGE INSTRUCTIONS 1. Follow up in the office tomorrow, 02/06/2017, for Neulasta 6 mg subcu. 2. Follow up in the office to see me next week prior to getting a PET CT scan. DISCHARGE MEDICATIONS 1. Sodium bicarbonate 650 mg 3x a day. 2. Gabapentin 100 mg 3x a day. 3. Keppra 500 mg at bedtime. 4. Keppra 250 mg every morning. 5. Lyrica 300 mg twice a day. 6. Cymbalta 60 mg in the morning. 7. Cymbalta 30 mg at bedtime. 8. Marinol 2.5 mg p.o. b.i.d. p.r.n. 9. Plaquenil 200 mg twice a day. 10. Abilify 7 mg at bedtime. 11. Valtrex 1 g once daily. 12. Xanax 0.5 mg p.o. b.i.d. 13. Metoprolol 25 mg XL once every morning. 14. Ditropan 5 mg p.o. b.i.d. 15. Aspirin 81 mg once daily. 16. Protonix 40 mg once daily. 17. Flexeril 10 mg at bedtime. 18. Bactrim 1 double strength tablet Sunday, Sunday, Sunday. 19. Calcitrol p.o. daily. 20. Vitamin D 1000 units once daily. DISCHARGE DAY EVALUATION CHIEF COMPLAINT Feeling well without any nausea, fatigue. REVIEW OF SYSTEMS No fever, chills, sweats. EYES: Negative. EARS, NOSE, MOUTH AND THROAT: Negative. RESPIRATORY: Negative. Unit #: [id number] #: [id number] Patient: VIC LANIER CARDIOVASCULAR: Negative. GASTROINTESTINAL: Negative. : Negative. MUSCULOSKELETAL: Chronic pain (1) . NEUROLOGICAL: Negative. PHYSICAL EXAMINATION VITAL SIGNS: On examination, temperature 97.5, pulse is 81, blood pressure 140/87. HEENT: Shows pupils are equal, react well to light. She is pale but not icteric. Mucous membranes are moist. NECK: No adenopathy, JVD or thyromegaly. CARDIOVASCULAR SYSTEM: First and second heart sounds. Regular without murmurs, gallops, rubs. LUNGS: Chest expansion symmetric, (2) normal breath sounds. ABDOMEN: Soft, nontender. No organomegaly. Bowel sounds are present, normal. EXTREMITIES: Warm with good pulses. No edema, cyanosis, clubbing. NEURO EXAMINATION: She is awake, alert, oriented x3 without any focal findings. MUSCULOSKELETAL: Chronic changes from rheumatoid arthritis and lupus. SKIN: Negative. PSYCHIATRIC: Normal affect. LYMPH NODES: Not felt. DIAGNOSTIC STUDIES LABORATORY: White count 6.8, hemoglobin 10.9, platelets 254,000. She will follow up in the office after discharge. Dictated by... Helene Young/sosa TD: 02/07/2017 07:20 JOB #: [id number] DISCHARGE SUMMARY Page 1 of 1 X Daniel Theodore MD X DISCHARGE SUMMARY
--- NOTE | ~2017-01-31 | HP ---
Unit #: [id number] #: [id number] Patient: RACHEL LANIER [id number] [address] [address] [id number] I MR#: [id number] NAME: RACHEL LANIER ROOM: 308 Age: 61 Sex: F Admission Date: 01/31/2017 : 1955 Attending Physician: Daniel Theodore M.D. Primary Care Physician: Ciaran Ospina M.D. HISTORY AND PHYSICAL CHIEF COMPLAINT Admitted electively for cycle six of chemotherapy, cycle two of dose-adjusted EPOCH (1) . HISTORY OF PRESENT ILLNESS Ms. Kennedy Solomon tells me that she is feeling increasingly well. Appetite is good and she has gained a few pounds in weight. She has had no diarrhea or constipation and certainly no rectal bleeding. She tells me her rheumatoid arthritis and lupus are well controlled. PAST MEDICAL HISTORY 1. Longstanding rheumatoid arthritis and systemic lupus erythematosus. 2. Ileocecal lymphoma large B cell diagnosed in July 2016, treated with chemotherapy with R-COEP which was up to four cycles and was switched to dose-adjusted EPOCH of which she has had one cycle. She had lost about 60 pounds in weight, much of which she has regained. Pathology with a diffuse large B cell lymphoma, negative for BCL2 and MYC rearrangement, positive for BCL6, stage IIEA. 3. Hypertension. 4. Chronic kidney disease. 5. Congestive heart failure, ejection fraction 45%. PAST SURGICAL HISTORY 1. Hysterectomy. 2. Lymph node excision from jaw in 1999. 3. Cholecystectomy. FAMILY HISTORY Lung cancer in father at age 82. SOCIAL HISTORY Never smoker. Does not drink any alcohol. She lives with daughter who is a nurse and has three other children including an adopted daughter. REVIEW OF SYSTEMS A 14-point review of systems taken. CONSTITUTIONAL: As discussed above. EYES: Negative. EARS, NOSE, MOUTH, THROAT: Negative. CARDIOVASCULAR: No chest pain or palpitations. RESPIRATORY: Negative. GASTROINTESTINAL: As discussed. GENITOURINARY: Negative. ALLERGY/LYMPHATIC: Negative. Unit #: [id number] #: [id number] Patient: RACHEL LANIER SKIN: Negative. MUSCULOSKELETAL: Chronic pain related to her arthritis. PSYCHIATRIC: Negative. SKIN: Negative. PHYSICAL EXAMINATION GENERAL: She is a pleasant middle-aged woman. ECOG performance status 1. She is awake, alert, oriented x3, no distress. VITAL SIGNS: Temperature is 99.4 at admission, pulse rate is 92, respiratory rate 16, blood pressure 133/84, O2 saturations 100% on room air. HEENT: Shows pupils are equal, react to light. She is pale but not icteric. Mucous membranes are moist. NECK: No adenopathy, JVD, or thyromegaly. CARDIOVASCULAR: First and second heart sounds are heard and regular. No murmurs, gallops, or rubs. LUNGS: Chest expansion symmetric. Bilateral equal and normal breath sounds. ABDOMEN: Soft, nontender. Bowel sounds are active. No organomegaly. EXTREMITIES: Warm with good pulses. No edema, cyanosis, or clubbing. NEUROLOGIC: She is awake, alert, and oriented x3 without any focal findings. SKIN: Negative. LYMPHATIC: No palpable lymph nodes. PSYCHIATRIC: Normal affect. DIAGNOSTIC STUDIES LABORATORY: Labs pending. ASSESSMENT Ms. Rachel Solomon is 61 years old with a history of stage IIEB large cell lymphoma of the ileocecal area, who is being admitted for a second cycle of chemotherapy with dose-adjusted EPOCH which will be her sixth cycle of chemotherapy overall. She is clinically stable and discussed with her that we will plan to treat her with dose-adjusted EPOCH and following this cycle of chemotherapy receive Neulasta as an outpatient in the office. She will be restated following this cycle of chemotherapy with a PET CT scan and based upon PET CT scan, we will discontinue chemotherapy or continue chemotherapy further. Additionally, will review her medications related to lupus and rheumatoid arthritis and continue her multiple medications. She will receive DVT prophylaxis with a combination of SCDs and Lovenox. Dictated by Helene Young/angela TD: 02/01/2017 11:19 JOB #: [id number] Unit #: [id number] #: [id number] Patient: RACHEL LANIER HISTORY AND PHYSICAL Page 1 of 1 X Daniel Theodore MD X HISTORY AND PHYSICAL
[~2017-01-31 10:20] MED LIST changes: +ASPIRIN81 MG PO; +MARINOL2.5 M1 PO; +PREDNISONE PO
[2017-01-31 12:05] LABS: BASOPHIL% 0.6 % (0-2.5); EOSINOPHIL# 0.1 X10e3 (0-0.7); EOSINOPHIL% 2.7 % (0.0-7.0); HEMATOCRIT 32.1 % (35.0-45.0); HEMOGLOBIN 10.3 gm/dL (12.0-16.0); LYMPHOCYTE# 1.2 X10e3 (1.0-3.5); LYMPHOCYTE% 21.5 % (17.0-45.0); MEAN CORPUSCULAR HEMOGLOBIN 28.2 PG (28-34); MEAN CORPUSCULAR HGB CONC 32.1 g/dL (30-36); MEAN PLATELET VOLUME 7.8 FL (6.5-11.5); MONOCYTE# 0.6 X10e3 (0-1.0); MONOCYTE% 11.9 % (3.0-12.0); NEUTROPHIL# 3.4 X10e3 (1.5-7.1); NEUTROPHIL% 63.3 % (40-75); PLATELET COUNT 213 X10e3 (140-420); RED BLOOD COUNT 3.65 X10e (3.90-5.30); RED CELL DISTRIBUTION WIDTH 20.4 % (11.0-15.5); WHITE BLOOD COUNT 5.4 X10e3 (4.0-10.5)
[2017-01-31 12:06] LABS: DIFF IND NO
[2017-01-31 12:10] LABS: PROTHROMBIN TIME (PATIENT) 10.8 SECONDS (10.0-11.7)
[2017-01-31 12:21] LABS: ALBUMIN SERUM 3.7 g/dL (3.5-5.0); BILIRUBIN,TOTAL 0.6 mg/dL (0.2-2.0); CREATININE SERUM 1.2 mg/dL (0.6-1.4); GLOM FILT RATE Estimated 56.5 mL/min (>60); POTASSIUM 3.9 mmol/L (3.5-5.1); PROTEIN TOTAL SERUM 6.7 g/dL (6.0-8.3)
[2017-02-01 05:38] LABS: BASOPHIL% 0.5 % (0-2.5); HEMATOCRIT 34.4 % (35.0-45.0); HEMOGLOBIN 10.9 gm/dL (12.0-16.0); LYMPHOCYTE# 0.6 X10e3 (1.0-3.5); LYMPHOCYTE% 8.6 % (17.0-45.0); MEAN CORPUSCULAR HEMOGLOBIN 28.3 PG (28-34); MEAN CORPUSCULAR HGB CONC 31.8 g/dL (30-36); MEAN PLATELET VOLUME 8.2 FL (6.5-11.5); MONOCYTE# 0.1 X10e3 (0-1.0); MONOCYTE% 1.6 % (3.0-12.0); NEUTROPHIL# 6.1 X10e3 (1.5-7.1); NEUTROPHIL% 89.3 % (40-75); PLATELET COUNT 254 X10e3 (140-420); RED BLOOD COUNT 3.86 X10e (3.90-5.30); RED CELL DISTRIBUTION WIDTH 20.4 % (11.0-15.5); WHITE BLOOD COUNT 6.8 X10e3 (4.0-10.5)
[2017-02-01 05:39] LABS: DIFF IND YES
[2017-02-01 05:52] LABS: ANISOCYTOSIS MOD; NUCLEATED RED BLOOD CELL 1 /100 ([, 0]); PLATELET ESTIMATE NORMAL (NORMAL)
[2017-02-01 05:53] LABS: SCHISTOCYTES PRESENT
[2017-02-01 06:34] LABS: BILIRUBIN,TOTAL 0.7 mg/dL (0.2-2.0); CALCIUM SERUM 9.3 mg/dL (8.4-10.2); GLOM FILT RATE Estimated 70.5 mL/min (>60); MAGNESIUM 1.7 mg/dL (1.6-3.0); PHOSPHOROUS 4.2 mg/dL (2.5-4.6); POTASSIUM 4.7 mmol/L (3.5-5.1); PROTEIN TOTAL SERUM 7.1 g/dL (6.0-8.3)
[2017-02-05] MEDS ORDERED: HYDROCODON-ACE1 EAC7 PO (09:28)
== END 2017-02-05 12:05 | disposition home or self-care (01) | DRG 847 ==
LOC: C3A PCU 10:24
PROVIDERS: Internal Medicine Hematology & Oncology
PROC: 3E0W305 Introduction of Other Antineoplastic into Lymphatics, Percutaneous Approach (ICD-10-PCS; principal; 2017-01-31)
DX: Z51.11 Encounter for antineoplastic chemotherapy (principal); C83.33 Diffuse large B-cell lymphoma, intra-abdominal lymph nodes; M32.9 Systemic lupus erythematosus, unspecified; I13.0 Hypertensive heart and chronic kidney disease with heart failure and stage 1 through stage 4 chronic kidney disease, or unspecified chronic kidney disease; N18.3 Chronic kidney disease, stage 3 (moderate); I50.9 Heart failure, unspecified; M06.9 Rheumatoid arthritis, unspecified; Z90.49 Acquired absence of other specified parts of digestive tract; Z80.1 Family history of malignant neoplasm of trachea, bronchus and lung
CPT/HCPCS: 80053; 83735; 84100; 85025; 85610; 85730; 94760; J1100; J1200; J1650; J2469; J3475; J9070; J9181; J9310; J9370; Q0167